=== PATIENT | male | born 1970 | race Caucasian/White ===

== ENCOUNTER 2023-08-28 15:25 | Inpatient (IN) ==
[2023-08-28] MEDS: SODIUM CHLORIDE 0.9% 1,000 ML IV SCH (15:42)
--- NOTE | 2023-08-28 15:44 | Emergency Department Note ---
Impression & Plan Non-ST elevation SD (NSTEMI), Leukocytosis, Acute hyponatremia, Hyperglycemia, CHF (congestive heart failure), Acute hypoxic respiratory failure ED Provider Note NAME: EMIL JAMES AGE: 53 SEX: M : 1970 ARRIVES VIA: Ambulance INFORMANT: Patient ED PROVIDER(S): Adam Crawford DO CHIEF COMPLAINT: chest pain and shortness of breath HPI: Patient is a 54-year-old male with a past medical history of hypertension, epilepsy, dyslipidemia, smoking, diabetes and generalized anxiety who presents to the ER for 6 days worth of nausea and vomiting. He was unable to keep anything down until about three days ago. Following this he started having chest tightness in his chest associate with shortness of breath with any kind of movement for the past 3 days. He notes that he went to see his PCP and he was consequently referred him here. He was brought in by EMS. He denies any headache or change in vision. No belly pain, or diarrhea. No dysuria, urgency, or frequency. ADDITIONAL HISTORY OBTAINED: Per HPI Chronic Medical/Social Conditions Affecting Care: Per HPI PAST MEDICAL HISTORY:See Below PAST SURGICAL HISTORY:See Below FAMILY HISTORY:See Below SOCIAL HISTORY:See Below HOME MEDICATIONS:See Below ALLERGIES:See Below VITALS:See Below PHYSICAL EXAMINATION: GENERAL: Sitting up in bed, alert, slightly ill appearing EYE EXAM: normal conjunctiva. PERRL and EOM's grossly intact. OROPHARYNX: no exudate, no erythema, lips, buccal mucosa, and tongue normal and mucous membranes are moist NECK: supple, no nuchal rigidity, no adenopathy, non-tender LUNGS: Clear to auscultation. Normal chest wall mechanics HEART: tachy, S1 normal and S2 normal ABDOMEN: abdomen soft, non-tender, normo-active bowel sounds, no masses, no rebound or guarding. UPPER EXTREMITIES: upper extremities are grossly normal. LOWER EXTREMITIES: No pitting edema. NEURO EXAM: Normal sensorium, cranial nerves II-XII grossly intact, normal speech, no gross weakness of arms, no gross weakness of legs. MEDICAL DECISION MAKING: Patient is a 53-year-old male who presents ER for the above-stated complaint. IV was established blood work was obtained. Labs showed a leukocytosis of 11,000. No significant anemia. BMP was fairly unremarkable. Glucose was elevated at 424. Troponin was elevated at 470. Lactic acid was elevated at 3. Procalcitonin was negative. Upon initial evaluation and presentation Patient was initially given 1 L of fluids upon arrival do to his History of nausea and vomiting for the past 6 days and combination with the EKG that appeared to be sinus tach. Chest x-ray was obtained/delayed and was not taken until Over an hour after arrival which showed pulmonary edema per my read. CT angio of the chest was obtained prior to the results of the chest x-ray which showed pulmonary edema and no PEs as is concern for PE in the setting of his initial presentation in combination with a sinus tachycardia. CT abdomen pelvis is unremarkable with the exception of a concern for recent SD which was discussed with both cardiology and interventional cardiology. EKG did show abnormal ST wave changes. Fluids were stopped and he had received 800 and the fluids. He was given IV Lasix and Lopressor x 3 doses at this time. Heart rate trended down to low 100s. I discussed with Dr. Corrales who recommended that I speak with the cement mason apprentice. Spoke with Dr. Gaviria and he recommended grabbing an echo. We called the technology intern in. They are performing an echo currently. I discussed case with the hospitalist for admission. Patient is feeling significantly better on BiPAP which she was placed on initially and after the Lasix and multiple dose of Lopressor's. Consults/Care Managements Discussions: Per [facility] Triage Nursing notes reviewed. Limited review of prior medical records performed Vital Signs: reviewed and remarkable for HTN and tachy Differential diagnosis: Cardiac ischemia, aortic dissection, pulmonary embolism, pneumothorax, pneumonia, pericarditis, myocarditis, esophageal rupture, GERD, cholecystitis, pancreatitis, musculoskeletal, as well as other pathologies. ER treatment provided: See below Diagnostics interpreted by me include EKG and cardiac monitoring as listed below: -Cardiac Monitoring: An order was placed for continuous cardiac monitoring. The monitor shows a rate of 130 with Aflutter rhythm. -ECG: atrial flutter rate of 136 Left axis Right bundle branch block ST elevation in V1-V2. QTC 571 -Laboratory studies:Interpreted by me as stated above in MDM and shown below. Imaging studies: Xrays: As interpreted by me:Portable AP upright 1 view of the chest shows bilateral pulmonary edema and pleural effusions CTs show: CT of the chest and abdomen pelvis as described above Procedures:none Critical Care: I have personally spent 80 minutes of critical care time in the direct management of this patient. This includes bedside care, interpretation of diagnostic studies, and testing, discussion with consultants, patient, and family members, and other required patient management activities. This 80 minutes is in excess of all separately billable procedures. Past Med/Surg History Problem List (Updated 08/28/23 @ 19:17 by Adam Crawford DO) Acute hypoxic respiratory failure (Acute) CHF (congestive heart failure) (Acute) Hyperglycemia (Acute) Acute hyponatremia (Acute) Leukocytosis (Acute) Non-ST elevation SD (NSTEMI) (Acute) Hypomagnesemia Tobacco abuse Diabetes mellitus, type II Bilateral pleural effusion Pulmonary edema NSTEMI (non-ST elevated myocardial infarction) History of diabetes mellitus, type II Polyneuropathy Anxiety state Essential hypertension Hyperlipidemia Generalized convulsive epilepsy Idiopathic polyneuropathy Medical History Closed fracture of cervical vertebra without spinal cord injury Dissection of vertebral artery Carotid artery occlusion Family History Mother Diabetes Hypertension Grandmother (Maternal) No problems noted. Grandfather (Maternal) No problems noted. Social History Smoking Status: Current every day smoker Hx Alcohol Use: No Hx Substance Use: No Preferred Language: Pakistani marital status: Single Current Living Situation: Alone Feels Safe at Home: Yes caffeine: Yes Allergies Allergies Allergy/AdvReac Type Severity Reaction Status Date / Time No Known Allergies Allergy Verified 06/28/22 08:48 Home Meds Home Medications Medication Instructions Recorded Confirmed amlodipine 10 mg tablet 10 mg PO DAILY 06/28/22 06/28/22 aspirin 25 mg-dipyridamole 200 mg 1 cap PO DAILY 06/28/22 06/28/22 capsule,ext.release 12 hr multiphase atorvastatin 40 mg tablet 40 mg PO DAILY 06/28/22 06/28/22 buspirone 10 mg tablet 10 mg PO TID PRN 06/28/22 06/28/22 dulaglutide 0.75 mg/0.5 mL 0.75 mg subcut Q7D 06/28/22 06/28/22 subcutaneous pen injector (Trulicity) hydrochlorothiazide 25 mg tablet 25 mg PO BID 06/28/22 06/28/22 metoprolol tartrate 100 mg tablet 100 mg PO DAILY 06/28/22 06/28/22 paroxetine HCl 20 mg tablet (Paxil) 20 mg PO DAILY 06/28/22 06/28/22 paroxetine HCl 40 mg tablet (Paxil) 40 mg PO DAILY 06/28/22 06/28/22 trazodone 50 mg tablet 50 mg PO HS 06/28/22 06/28/22 valsartan 320 mg tablet 320 mg PO DAILY 06/28/22 06/28/22 Previous Rx's Medication Instructions Recorded oxcarbazepine 150 mg tablet 150 mg PO BID #60 tabs 06/28/22 Results & Data (ED) Vital Signs Vital Signs - 24 hr 08/28/23 15:29 08/28/23 15:31 08/28/23 15:33 Temperature 36.8 C Temperature Source Temporal Artery Scan Pulse Rate 132 H 138 H Pulse Rate [Apical] Pulse Rate from SpO2 Sensor 137 H Pulse Rhythm Pulse Rhythm [Apical] Pulse Strength [Apical] Respiratory Rate 20 26 H Respiratory Effort / Characteristics Non-Labored Spontaneous Respiratory Depth Normal Respiratory Pattern Regular Blood Pressure 153/118 H 153/118 H Blood Pressure [Left Arm] Blood Pressure Mean 132 129 Blood Pressure Mean [Left Arm] Blood Pressure Position Sitting Blood Pressure Position [Left Arm] Pulse Oximetry 94 95 Oxygen Delivery Method Room Air Oxygen Flow Rate Fraction of Inspired Oxygen SaO2/FiO2 Ratio Sepsis Recent Fever Within 48 Hours No Sepsis New/Unexplained Change in Mental Status No Sepsis Action Taken by Nursing No Action Required 08/28/23 15:41 08/28/23 15:43 08/28/23 15:45 Temperature Temperature Source Pulse Rate 131 H 136 H Pulse Rate [Apical] Pulse Rate from SpO2 Sensor Pulse Rhythm Regular Pulse Rhythm [Apical] Pulse Strength [Apical] Respiratory Rate 20 Respiratory Effort / Characteristics Respiratory Depth Respiratory Pattern Blood Pressure Blood Pressure [Left Arm] Blood Pressure Mean Blood Pressure Mean [Left Arm] Blood Pressure Position Blood Pressure Position [Left Arm] Pulse Oximetry 92 92 Oxygen Delivery Method Room Air Room Air Oxygen Flow Rate Fraction of Inspired Oxygen SaO2/FiO2 Ratio Sepsis Recent Fever Within 48 Hours Sepsis New/Unexplained Change in Mental Status Sepsis Action Taken by Nursing 08/28/23 15:50 08/28/23 15:54 08/28/23 16:03 Temperature Temperature Source Pulse Rate 123 H 122 H Pulse Rate [Apical] 135 H Pulse Rate from SpO2 Sensor 123 H Pulse Rhythm Pulse Rhythm [Apical] Regular Pulse Strength [Apical] Normal Respiratory Rate 22 29 H 27 H Respiratory Effort / Characteristics Spontaneous Respiratory Depth Respiratory Pattern Regular Blood Pressure Blood Pressure [Left Arm] 153/118 H Blood Pressure Mean Blood Pressure Mean [Left Arm] 129 Blood Pressure Position Blood Pressure Position [Left Arm] Sitting Pulse Oximetry 95 91 Oxygen Delivery Method Room Air Oxygen Flow Rate Fraction of Inspired Oxygen SaO2/FiO2 Ratio Sepsis Recent Fever Within 48 Hours Sepsis New/Unexplained Change in Mental Status Sepsis Action Taken by Nursing 08/28/23 16:25 08/28/23 16:28 08/28/23 16:36 Temperature Temperature Source Pulse Rate 149 H Pulse Rate [Apical] Pulse Rate from SpO2 Sensor 148 H Pulse Rhythm Pulse Rhythm [Apical] Pulse Strength [Apical] Respiratory Rate 28 H 26 H 25 H Respiratory Effort / Characteristics Spontaneous Labored Spontaneous Labored Respiratory Depth Respiratory Pattern Blood Pressure Blood Pressure [Left Arm] Blood Pressure Mean Blood Pressure Mean [Left Arm] Blood Pressure Position Blood Pressure Position [Left Arm] Pulse Oximetry 84 L 92 96 Oxygen Delivery Method Room Air Nasal Cannula Oxygen Flow Rate 3 Fraction of Inspired Oxygen SaO2/FiO2 Ratio Sepsis Recent Fever Within 48 Hours Sepsis New/Unexplained Change in Mental Status Sepsis Action Taken by Nursing 08/28/23 16:37 08/28/23 16:37 08/28/23 16:37 Temperature Temperature Source Pulse Rate Pulse Rate [Apical] Pulse Rate from SpO2 Sensor Pulse Rhythm Pulse Rhythm [Apical] Pulse Strength [Apical] Respiratory Rate Respiratory Effort / Characteristics Respiratory Depth Respiratory Pattern Blood Pressure 172/126 H 172/126 H 172/126 H Blood Pressure [Left Arm] Blood Pressure Mean 133 133 133 Blood Pressure Mean [Left Arm] Blood Pressure Position Blood Pressure Position [Left Arm] Pulse Oximetry Oxygen Delivery Method Oxygen Flow Rate Fraction of Inspired Oxygen SaO2/FiO2 Ratio Sepsis Recent Fever Within 48 Hours Sepsis New/Unexplained Change in Mental Status Sepsis Action Taken by Nursing 08/28/23 16:47 08/28/23 16:57 08/28/23 17:00 Temperature Temperature Source Pulse Rate 130 H 127 H 124 H Pulse Rate [Apical] Pulse Rate from SpO2 Sensor 127 H 124 H Pulse Rhythm Pulse Rhythm [Apical] Pulse Strength [Apical] Respiratory Rate 30 H 30 H 31 H Respiratory Effort / Characteristics Spontaneous Labored Short of Breath Respiratory Depth Retractive Respiratory Pattern Rapid/Shallow Blood Pressure Blood Pressure [Left Arm] Blood Pressure Mean Blood Pressure Mean [Left Arm] Blood Pressure Position Blood Pressure Position [Left Arm] Pulse Oximetry 98 98 99 Oxygen Delivery Method Oxygen Flow Rate Fraction of Inspired Oxygen 45 SaO2/FiO2 Ratio Sepsis Recent Fever Within 48 Hours Sepsis New/Unexplained Change in Mental Status Sepsis Action Taken by Nursing 08/28/23 17:10 08/28/23 17:15 08/28/23 17:19 Temperature Temperature Source Pulse Rate 125 H Pulse Rate [Apical] 120 H Pulse Rate from SpO2 Sensor Pulse Rhythm Pulse Rhythm [Apical] Regular Pulse Strength [Apical] Normal Respiratory Rate 22 Respiratory Effort / Characteristics Spontaneous Labored Respiratory Depth Respiratory Pattern Regular Blood Pressure 146/115 H 146/115 H Blood Pressure [Left Arm] 149/113 H Blood Pressure Mean 139 Blood Pressure Mean [Left Arm] 125 Blood Pressure Position Blood Pressure Position [Left Arm] Sitting Pulse Oximetry 99 Oxygen Delivery Method BiPAP Oxygen Flow Rate Fraction of Inspired Oxygen 45 SaO2/FiO2 Ratio 220 Sepsis Recent Fever Within 48 Hours Sepsis New/Unexplained Change in Mental Status Sepsis Action Taken by Nursing 08/28/23 17:30 08/28/23 17:35 08/28/23 18:01 Temperature Temperature Source Pulse Rate 125 H 115 H Pulse Rate [Apical] 115 H Pulse Rate from SpO2 Sensor Pulse Rhythm Pulse Rhythm [Apical] Regular Pulse Strength [Apical] Normal Respiratory Rate 24 Respiratory Effort / Characteristics Labored Respiratory Depth Respiratory Pattern Blood Pressure 133/113 H Blood Pressure [Left Arm] 122/101 H Blood Pressure Mean Blood Pressure Mean [Left Arm] 108 Blood Pressure Position Blood Pressure Position [Left Arm] Sitting Pulse Oximetry 98 Oxygen Delivery Method BiPAP Oxygen Flow Rate Fraction of Inspired Oxygen 45 SaO2/FiO2 Ratio 217 Sepsis Recent Fever Within 48 Hours Sepsis New/Unexplained Change in Mental Status Sepsis Action Taken by Nursing 08/28/23 18:30 08/28/23 18:55 08/28/23 18:59 Temperature Temperature Source Pulse Rate 134 H Pulse Rate [Apical] 122 H 116 H Pulse Rate from SpO2 Sensor Pulse Rhythm Pulse Rhythm [Apical] Regular Regular Pulse Strength [Apical] Normal Normal Respiratory Rate 22 24 Respiratory Effort / Characteristics Non-Labored Spontaneous Spontaneous Labored Respiratory Depth Normal Respiratory Pattern Regular Blood Pressure 151/110 H Blood Pressure [Left Arm] 131/106 H 125/93 Blood Pressure Mean Blood Pressure Mean [Left Arm] 114 103 Blood Pressure Position Blood Pressure Position [Left Arm] Sitting Pulse Oximetry 95 96 Oxygen Delivery Method BiPAP BiPAP Oxygen Flow Rate Fraction of Inspired Oxygen 45 45 SaO2/FiO2 Ratio 211 213 Sepsis Recent Fever Within 48 Hours Sepsis New/Unexplained Change in Mental Status Sepsis Action Taken by Nursing 08/28/23 19:00 Temperature Temperature Source Pulse Rate Pulse Rate [Apical] 113 H Pulse Rate from SpO2 Sensor Pulse Rhythm Pulse Rhythm [Apical] Regular Pulse Strength [Apical] Normal Respiratory Rate 24 Respiratory Effort / Characteristics Respiratory Depth Respiratory Pattern Blood Pressure Blood Pressure [Left Arm] Blood Pressure Mean Blood Pressure Mean [Left Arm] Blood Pressure Position Blood Pressure Position [Left Arm] Pulse Oximetry 96 Oxygen Delivery Method BiPAP Oxygen Flow Rate Fraction of Inspired Oxygen 45 SaO2/FiO2 Ratio 213 Sepsis Recent Fever Within 48 Hours Sepsis New/Unexplained Change in Mental Status Sepsis Action Taken by Nursing Laboratory Data 08/28/23 15:36 08/28/23 15:36 Lab Results 08/28/23 08/28/23 08/28/23 Range/Units 15:36 15:37 17:26 WBC 11.88 H (4.8-10.8) K/ul RBC 5.43 (4.70-6.10) M/uL Hgb 15.7 (14.0-18.0) g/dl POC Hgb 16.3 (14.0-18.0) g/dl Hct 45.5 (42.0-52.0) % POC Hct 48 (42-52) % MCV 83.8 (80.0-100.0) fL MCH 28.9 (25.0-34.0) pg MCHC 34.5 (32.0-36.0) g/dL RDW Std Deviation 40.4 (36.4-46.3) fL RDW Coeff of Silvestre 13.3 (11.5-14.5) % Plt Count 405 H (130-400) K/uL MPV 9.9 (9.4-12.4) fL Immature Gran % (Auto) 0.6 % Neut % (Auto) 81.7 % Lymph % (Auto) 11.4 % [place] % (Auto) 6.0 % Eos % (Auto) 0.0 % Baso % (Auto) 0.3 % Neut # (Auto) 9.71 H (1.40-6.50) K/uL Lymph # (Auto) 1.35 (1.20-3.40) K/uL [place] # (Auto) 0.71 H (0.11-0.59) K/uL Eos # (Auto) 0.00 (0.00-0.50) K/uL Baso # (Auto) 0.04 (0.00-0.20) K/uL Immature Gran # (Auto) 0.07 (0.01-0.20) K/uL POC Sodium 131 L (135-144) mmol/L Sodium 131 L (136-145) mmol/L POC Potassium 3.8 (3.3-5.0) mmol/L Potassium 3.7 (3.5-5.1) mmol/L POC Chloride 92 L (101-112) mmol/L Chloride 94 L (98-107) mmol/L Carbon Dioxide 25 (21-32) mmol/L POC Total CO2 22 L (24-31) mmol/L Anion Gap 12 H (3-11) POC Anion Gap 22.0 (16-25) mmol/L POC BUN 11 (7-18) mg/dl BUN 12 (6-23) mg/dl Creatinine 0.82 (0.6-1.4) mg/dl POC Creatinine 0.7 (0.6-1.3) mg/dl Est Cr Clr Drug Dosing 132.7 ml/min Est GFR ( Amer) 117.0 ml/min Est GFR (Non-Af Amer) 101.0 ml/min BUN/Creatinine Ratio 14.6 (10-20) Glucose 424 H* (70-99(Fasting)) mg/dl POC Glucose 291 H (70-99) mg/dl POC Glucose (other) 405 H* (70-99) mg/dl Lactate 3.0 H* (0.4-2.0) mmol/L Calcium 9.1 (8.6-10.3) mg/dl POC Ioniz Calcium Shaun 1.08 L (1.12-1.32) mmol/l Magnesium 1.5 L (1.7-2.4) mg/dl Total Bilirubin 0.9 (0.2-1.0) mg/dl Direct Bilirubin 0.2 (0-0.2) mg/dl AST 40 H (13-39) U/L ALT 53 H (7-52) U/L Alkaline Phosphatase 103 (34-104) U/L Troponin I High Sens 413.9 H* (0-20) pg/ml Total Protein 6.9 (6.0-8.3) gm/dl Albumin 3.5 (3.4-5.0) gm/dl Procalcitonin 0.08 (0-0.5) ng/ml 08/28/23 Range/Units 17:58 WBC (4.8-10.8) K/ul RBC (4.70-6.10) M/uL Hgb (14.0-18.0) g/dl POC Hgb (14.0-18.0) g/dl Hct (42.0-52.0) % POC Hct (42-52) % MCV (80.0-100.0) fL MCH (25.0-34.0) pg MCHC (32.0-36.0) g/dL RDW Std Deviation (36.4-46.3) fL RDW Coeff of Silvestre (11.5-14.5) % Plt Count (130-400) K/uL MPV (9.4-12.4) fL Immature Gran % (Auto) % Neut % (Auto) % Lymph % (Auto) % [place] % (Auto) % Eos % (Auto) % Baso % (Auto) % Neut # (Auto) (1.40-6.50) K/uL Lymph # (Auto) (1.20-3.40) K/uL [place] # (Auto) (0.11-0.59) K/uL Eos # (Auto) (0.00-0.50) K/uL Baso # (Auto) (0.00-0.20) K/uL Immature Gran # (Auto) (0.01-0.20) K/uL POC Sodium (135-144) mmol/L Sodium (136-145) mmol/L POC Potassium (3.3-5.0) mmol/L Potassium (3.5-5.1) mmol/L POC Chloride (101-112) mmol/L Chloride (98-107) mmol/L Carbon Dioxide (21-32) mmol/L POC Total CO2 (24-31) mmol/L Anion Gap (3-11) POC Anion Gap (16-25) mmol/L POC BUN (7-18) mg/dl BUN (6-23) mg/dl Creatinine (0.6-1.4) mg/dl POC Creatinine (0.6-1.3) mg/dl Est Cr Clr Drug Dosing ml/min Est GFR ( Amer) ml/min Est GFR (Non-Af Amer) ml/min BUN/Creatinine Ratio (10-20) Glucose (70-99(Fasting)) mg/dl POC Glucose (70-99) mg/dl POC Glucose (other) (70-99) mg/dl Lactate 3.5 H* (0.4-2.0) mmol/L Calcium (8.6-10.3) mg/dl POC Ioniz Calcium Shaun (1.12-1.32) mmol/l Magnesium (1.7-2.4) mg/dl Total Bilirubin (0.2-1.0) mg/dl Direct Bilirubin (0-0.2) mg/dl AST (13-39) U/L ALT (7-52) U/L Alkaline Phosphatase (34-104) U/L Troponin I High Sens 472.1 H* (0-20) pg/ml Total Protein (6.0-8.3) gm/dl Albumin (3.4-5.0) gm/dl Procalcitonin (0-0.5) ng/ml Administered Medications Heparin Sodium/Dextrose (Heparin Sodium/Dextrose) 25,000 units in 500 mls @ 20 mls/hr IV .Q24H [facility]; Protocol Stop: 09/27/23 17:44 Last Admin: 08/28/23 17:58 Dose: 1,000 units/hr, 20 mls/hr Documented By: MARCELINO Co-signed By: TRES Metoprolol Tartrate (Metoprolol Tartrate 1 Mg/Ml Vial) 5 mg IV Q5M PRN PRN Reason: Tachycardia Last Admin: 08/28/23 17:15 Dose: 5 mg Documented By: Admin: 08/28/23 16:53 Dose: 5 mg Documented By: MARCELINO Discontinued Medications Furosemide (Furosemide 40 Mg/4 Ml Vial) 40 mg IV NOW STA Stop: 08/28/23 16:38 Last Admin: 08/28/23 16:53 Dose: 40 mg Documented By: MARCELINO Heparin Sodium (Porcine) (Heparin Sod (Porcine) 1000 Unit/Ml) 1 units IV NOW ONE Stop: 08/28/23 17:33 Last Admin: 08/28/23 17:58 Dose: 4,000 units Documented By: MARCELINO Co-signed By: TRES Heparin Sodium/Dextrose (Heparin Iv Adult Wt-Based Low-Dose W/ Initial Bolus Protocol) 1 each IV NOW STA; Protocol Stop: 08/28/23 17:18 Last Admin: 08/28/23 18:02 Dose: Not Given Documented By: MARCELINO Sodium Chloride (Nss) 1,000 mls @ 999 mls/hr IV .Q1H1M YEIMY Stop: 08/28/23 17:45 Last Infusion: 08/28/23 17:05 Dose: Infused Documented By: Admin: 08/28/23 15:42 Dose: 999 mls/hr Documented By: MARCELINO Insulin Human Regular (Novolin-R Insulin Per Unit Charge) 6 units IV NOW STA Stop: 08/28/23 16:42 Last Admin: 08/28/23 16:54 Dose: 6 units Documented By: MARCELINO Co-signed By: WILLY Ioversol (Optiray 320 125ml) 119 ml IV ONCE ONE Stop: 08/28/23 16:34 Last Admin: 08/28/23 16:33 Dose: 119 ml Documented By: FAHAD Lorazepam (Lorazepam 1 Mg/1 Ml Syr Ed Inj Use) 0.25 mg IV ONE STA Stop: 08/28/23 17:10 Last Admin: 08/28/23 17:15 Dose: 0.25 mg Documented By: MARCELINO Metoprolol Tartrate (Metoprolol Tartrate 1 Mg/Ml Vial) 5 mg IV NOW STA Stop: 08/28/23 18:54 Last Admin: 08/28/23 18:55 Dose: 5 mg Documented By: MARCELINO Imaging Data Radiologist's Impression: Chest X-Ray 08/28/23 15:35 XR chest 1V portable CLINICAL HISTORY: Sepsis. Shortness of breath. COMPARISON STUDY: No previous studies for comparison. FINDINGS: There is no pneumothorax. There are small bilateral pleural effusions. Interlobular septal thickening is noted. Bibasilar and left perihilar opacities are noted. The heart is moderately enlarged. IMPRESSION: Cardiomegaly with interstitial and alveolar pulmonary edema with small bilateral pleural effusions. ACT 112: Negative or not required by law. Electronically signed by: Haroon Corbett M.D. 08/28/2023 4:42 PM Chest CTA 08/28/23 16:15 CT ANGIOGRAPHY OF THE CHEST, PULMONARY EMBOLUS PROTOCOL CLINICAL HISTORY: Shortness of breath. Chest pain. COMPARISON STUDY: Chest radiograph performed earlier today. TECHNIQUE: Following IV administration of 119 mL of Optiray, helical axial images of the chest were obtained utilizing the pulmonary embolus protocol. Maximal intensity projections and sagittal and coronal reformats were viewed on an independent 3D workstation. IV contrast was administered without complication. Automated exposure control was utilized for the study. A dose lowering technique was utilized adhering to the principles of ALARA. FINDINGS: No pulmonary emboli are identified. The heart is moderately enlarged. There is no pericardial effusion. There are multiple mildly enlarged mediastinal lymph nodes. Index right paratracheal lymph node on image 148 of 243 measures 1.9 x 1.4 cm. There are [id number] bilateral pleural effusions. No pneumothorax is present. Extensive interlobular septal thickening is noted. There are also moderate bilateral perihilar airspace opacities. Central airways are patent. There is extensive coronary artery calcification. The abdomen and pelvis CT will be reported separately. IMPRESSION: 1. No pulmonary emboli identified. 2. Cardiomegaly and extensive coronary artery calcification. Interstitial and alveolar pulmonary edema with small to moderate bilateral pleural effusions. 3. Mildly enlarged mediastinal lymph nodes. These are nonspecific although likely related to pulmonary edema. ACT 112: Negative or not required by law. Electronically signed by: Haroon Corbett M.D. 08/28/2023 4:48 PM Abdomen/Pelvis CT 08/28/23 16:[address] WITH IV CONTRAST CT DOSE: 2425.99 mGy.cm HISTORY: Acute chest abdominal pain abd pain TECHNIQUE: Multiaxial CT images of the abdomen and pelvis were performed following the IV administration of 119 cc of Optiray, A dose lowering technique was utilized adhering to the principles of ALARA. COMPARISON STUDY: CTA chest of same day FINDINGS: Moderate layering pleural effusions. Extensive interstitial and alveolar opacities with bibasilar consolidation. Cardiomegaly. Hypoattenuation of the left ventricular myocardium with decreased enhancement. No free air. Unremarkable spleen, pancreas and gallbladder. Hepatic steatosis. Probable cyst of the left hepatic lobe, 2.3 cm. The liver is mildly enlarged. No hydronephrosis. There are a few nonobstructing calculi noted within the bilateral kidneys measuring up to 4 mm. Bilateral hypodense foci of the kidneys suggestive of renal cysts measuring up to 1.5 cm on the right. Prostatomegaly. Unremarkable urinary bladder. Atherosclerosis of the aorta without aneurysm. No lymphadenopathy. No bowel obstruction or bowel wall thickening. Mild to moderate colonic fecal retention. Normal appendix. No acute fracture. Chronic appearing L3 wedge deformity. IMPRESSION: 1. No bowel obstruction or bowel wall thickening. 2. Nonobstructing bilateral nephrolithiasis. 3. Moderate pleural effusions with pulmonary edema and bibasilar consolidation. 4. Cardiomegaly with coronary arterial calcifications. Decreased enhancement of the left ventricular myocardium which involves the apex, lateral and septal walsh compatible with age-indeterminate myocardial infarct. Correlate with serum troponin's. ACT 112: Negative or not required by law. The above report was generated using voice recognition software. It may contain grammatical, syntax or spelling errors. Electronically signed by: Elan Stewart M.D. 08/28/2023 4:50 PM Discharge Plan Visit Data Chief Complaint: Chest Pain Stated Complaint: CHEST PAIN/SOB ED Provider: Adam Crawford Discharge Problem: Non-ST elevation SD (NSTEMI), Leukocytosis, Acute hyponatremia, Hyperglycemia, CHF (congestive heart failure), Acute hypoxic respiratory failure Forms Stand Alone Forms: My [facility] [employer] Prescriptions Prescriptions: No Action aspirin-dipyridamole 25-200 mg capsule, ER multiphase 12 hr 1 cap PO DAILY atorvastatin 40 mg tablet 40 mg PO DAILY metoprolol tartrate 100 mg tablet 100 mg PO DAILY paroxetine HCl [Paxil] 20 mg tablet 20 mg PO DAILY paroxetine HCl [Paxil] 40 mg tablet 40 mg PO DAILY valsartan 320 mg tablet 320 mg PO DAILY amlodipine 10 mg tablet 10 mg PO DAILY buspirone 10 mg tablet 10 mg PO TID PRN hydrochlorothiazide 25 mg tablet 25 mg PO BID trazodone 50 mg tablet 50 mg PO HS Trulicity 0.75 mg/0.5 mL pen injector 0.75 mg subcut Q7D oxcarbazepine 150 mg tablet 150 mg PO BID Qty: 60 5RF Referrals Referrals: Jossy Victoria DO [Outside Practitioners] - Discharge Problem: Leukocytosis Qualifiers: Leukocytosis type: unspecified Qualified Code(s): D72.829 - Elevated white blood cell count, unspecified CHF (congestive heart failure) Qualifiers: Heart failure type: unspecified Heart failure chronicity: unspecified Qualified Code(s): I50.9 - Heart failure, unspecified
[2023-08-28 15:50] LABS: iSTAT Creatinine 0.7 mg/dl (0.6-1.3); iSTAT Hemoglobin 16.3 g/dl (14.0-18.0); iSTAT Ionized Calcium 1.08 mmol/l (1.12-1.32); iSTAT Potassium 3.8 mmol/L (3.3-5.0)
[2023-08-28 15:57] LABS: Basophils # (auto) 0.04 K/uL (0.00-0.20); Basophils % (auto) 0.3 %; Hematocrit (blood only) 45.5 % (42.0-52.0); Hemoglobin 15.7 g/dl (14.0-18.0); Immature Granulocytes # (auto) 0.07 K/uL (0.01-0.20); Immature Granulocytes % (auto) 0.6 %; Lymphocytes # (auto) 1.35 K/uL (1.20-3.40); Lymphocytes % (auto) 11.4 %; Mean Corpuscular Hemoglobin 28.9 pg (25.0-34.0); Mean Corpuscular Hgb Conc 34.5 g/dL (32.0-36.0); Mean Corpuscular Volume 83.8 fL (80.0-100.0); Mean Platelet Volume 9.9 fL (9.4-12.4); Monocytes # (auto) 0.71 K/uL (0.11-0.59); Neutrophils # (auto) 9.71 K/uL (1.40-6.50); Neutrophils % (auto) 81.7 %; Platelet Count 405 K/uL (130-400); RDW Coefficient of Variation 13.3 % (11.5-14.5); RDW Standard Deviation 40.4 fL (36.4-46.3); Red Blood Count 5.43 M/uL (4.70-6.10); White Blood Count 11.88 K/ul (4.8-10.8)
[2023-08-28] MEDS: OPTIRAY 320 125ml IV ONE (16:33)
[2023-08-28 16:35] LABS: Albumin Level 3.5 gm/dl (3.4-5.0); BUN Creatinine Ratio 14.6 (10-20); Bilirubin Direct 0.2 mg/dl (0-0.2); Bilirubin,Total 0.9 mg/dl (0.2-1.0); Calcium 9.1 mg/dl (8.6-10.3); Creatinine Clr Calc Pharmacy 132.7 ml/min; Magnesium 1.5 mg/dl (1.7-2.4); Potassium 3.7 mmol/L (3.5-5.1); Total Protein 6.9 gm/dl (6.0-8.3); Troponin I High Sensitivity 413.9 pg/ml (0-20)
--- NOTE | 2023-08-28 16:43 | XRay Report ---
XR chest 1V portable CLINICAL HISTORY: Sepsis. Shortness of breath. COMPARISON STUDY: No previous studies for comparison. FINDINGS: There is no pneumothorax. There are small bilateral pleural effusions. Interlobular septal thickening is noted. Bibasilar and left perihilar opacities are noted. The heart is moderately enlarg ed. IMPRESSION: Cardiomegaly with interstitial and alveolar pulmonary edema with small bilateral pleural effusions. ACT 112: Negative or not required by law. Electronically signed by: Haroon Corbett M.D. 08/28/2023 4:42 PM
--- NOTE | 2023-08-28 16:50 | CT Scan Report ---
CT ANGIOGRAPHY OF THE CHEST, PULMONARY EMBOLUS PROTOCOL CLINICAL HISTORY: Shortness of breath. Chest pain. COMPARISON STUDY: Chest radiograph performed earlier today. TECHNIQUE: Following IV administration of 119 mL of Optiray, helical axial images of the chest were o btained utilizing the pulmonary embolus protocol. Maximal intensity projections and sagittal and cor onal reformats were viewed on an independent 3D workstation. IV contrast was administered without co mplication. Automated exposure control was utilized for the study. A dose lowering technique was ut ilized adhering to the principles of ALARA. FINDINGS: No pulmonary emboli are identified. The heart is moderately enlarged. There is no pericard ial effusion. There are multiple mildly enlarged mediastinal lymph nodes. Index right paratracheal ly mph node on image 148 of 243 measures 1.9 x 1.4 cm. There are [id number] bilateral pleural eff usions. No pneumothorax is present. Extensive interlobular septal thickening is noted. There are also moderate bilateral perihilar airspace opacities. Central airways are patent. There is extensive sukumar nary artery calcification. The abdomen and pelvis CT will be reported separately. IMPRESSION: 1. No pulmonary emboli identified. 2. Cardiomegaly and extensive coronary artery calcification. Interstitial and alveolar pulmonary licha a with small to moderate bilateral pleural effusions. 3. Mildly enlarged mediastinal lymph nodes. These are nonspecific although likely related to pulmonar y edema. ACT 112: Negative or not required by law. Electronically signed by: Haroon Corbett M.D. 08/28/2023 4:48 PM
--- NOTE | 2023-08-28 16:51 | CT Scan Report ---
ABDOMEN AND PELVIS CT WITH IV CONTRAST CT DOSE: 2425.99 mGy.cm HISTORY: Acute chest abdominal pain abd pain TECHNIQUE: Multiaxial CT images of the abdomen and pelvis were performed following the IV administrat ion of 119 cc of Optiray, A dose lowering technique was utilized adhering to the principles of ALARA . COMPARISON STUDY: CTA chest of same day FINDINGS: Moderate layering pleural effusions. Extensive interstitial and alveolar opacities with bib asilar consolidation. Cardiomegaly. Hypoattenuation of the left ventricular myocardium with decreased enhancement. No free air. Unremarkable spleen, pancreas and gallbladder. Hepatic steatosis. Probable cyst of the left hepatic l obe, 2.3 cm. The liver is mildly enlarged. No hydronephrosis. There are a few nonobstructing calculi noted within the bilateral kidneys measurin g up to 4 mm. Bilateral hypodense foci of the kidneys suggestive of renal cysts measuring up to 1.5 c m on the right. Prostatomegaly. Unremarkable urinary bladder. Atherosclerosis of the aorta without an eurysm. No lymphadenopathy. No bowel obstruction or bowel wall thickening. Mild to moderate colonic fecal retention. Normal appen marika. No acute fracture. Chronic appearing L3 wedge deformity. IMPRESSION: 1. No bowel obstruction or bowel wall thickening. 2. Nonobstructing bilateral nephrolithiasis. 3. Moderate pleural effusions with pulmonary edema and bibasilar consolidation. 4. Cardiomegaly with coronary arterial calcifications. Decreased enhancement of the left ventricular myocardium which involves the apex, lateral and septal walsh compatible with age-indeterminate myocar dial infarct. Correlate with serum troponin's. ACT 112: Negative or not required by law. The above report was generated using voice recognition software. It may contain grammatical, syntax o r spelling errors. Electronically signed by: Elan Stewart M.D. 08/28/2023 4:50 PM
[2023-08-28] MEDS: METOPROLOL TARTRATE 1 MG/ML VIAL IV PRN (16:53)
[2023-08-28] MEDS: FUROSEMIDE 40 MG/4 ML VIAL IV STA (16:53)
[2023-08-28] MEDS: NovoLIN-R INSULIN PER UNIT CHARGE IV STA (16:54)
--- NOTE | 2023-08-28 17:14 | Electrocardiogram Report ---
Test Reason : Blood Pressure : / mmHG Vent. Rate : 136 BPM Atrial Rate : 136 BPM P-R Int : 120 ms QRS Dur : 132 ms QT Int : 380 ms P-R-T Axes : 010 -67 089 degrees QTc Int : 571 ms Sinus tachycardia Left anterior fascicular block Non-specific intra-ventricular conduction block Minimal voltage criteria for LVH, may be normal variant ( [employer] product ) Possible Anteroseptal infarct , age undetermined Abnormal ECG No previous ECGs available Confirmed by Sea Mckeon ([id number]) on 08/28/2023 5:13:38 PM Referred By: Confirmed By:Sea Mckeon
[2023-08-28] MEDS: LORazepam 1 MG/1 ML SYR ED Inj Use IV STA (17:15)
--- NOTE | 2023-08-28 17:44 | History & Physical Report ---
Date of Service August 28, 2023 Assessment & Plan (1) NSTEMI (non-ST elevated myocardial infarction): (2) Pulmonary edema: (3) Bilateral pleural effusion: (4) Diabetes mellitus, type II: (5) Essential hypertension: (6) Generalized convulsive epilepsy: (7) Hyperlipidemia: (8) Tobacco abuse: (9) Hypomagnesemia: Plan 53 year old male with multiple medical conditions with HTN, DM, HLD, epilepsy, tobacco abuse etc who has been off of all medications for long time who presen frances to the ED from PCP office for CP. Ongoing N/V for about 6 days followed by chest pressure 3 days back, which got worse today and went to the PCP and was subsequently referred to the ED. Trop 400s. CXR- Cardiomegaly with interstitial and alveolar pulmonary edema with small bilateral pleural effusions. CTA chest 1. No pulmonary emboli identified. 2. Cardiomegaly and extensive coronary artery calcification. Interstitial and alveolar pulmonary edema with small to moderate bilateral pleural effusions. 3. Mildly enlarged mediastinal lymph nodes. These are nonspecific although likely related to pulmonary edema. CT A/P 1. No bowel obstruction or bowel wall thickening. 2. Nonobstructing bilateral nephrolithiasis. 3. Moderate pleural effusions with pulmonary edema and bibasilar consolidation. 4. Cardiomegaly with coronary arterial calcifications. Decreased enhancement of the left ventricular myocardium which involves the apex, lateral and septal walsh compatible with age-indeterminate myocardial infarct. Correlate with serum troponin's. NSTEMI with pulmonary edema and bilateral pleural effusion- Symptoms ongoing for at least 3 days now. Multiple risk factors including DM, HTN, HLD, tobacco abuse. Family h/o MT in dad. Given full dose ASA and SL nitro in PCP office, states chest pressure has significantly improved after nitro. In the ED, Trop 405. EKG with sinus tachycardia, LAFB, possible anteroseptal infarct. Cardio and interventional cardiology aware per discussion with ED physician and awaiting echo. Given lasix, lopressor, insulin in ED. On bipap for pulm edema. Will admit to PCU on tele. Continue to trend trop, monitor in tele, continue heparin drip, ASA, statin, BB, iv lasix daily. nitro prn, morphine prn for CP. Echo pending. Lactic acidosis could be from above, however will cover for empiric ceftriaxone with lung consolidations with effusion. DM-2- continue insulin- adjust as indicated. Glycemic pharmacist consulted. HA1c pending. HTN- not on meds. continue lopressor HLD- continue statin. lipid panel in am. Tobacco abuse- hasn't smoked in 2 weeks. Declined nicoderm patch H/o epilepsy- not on meds Hypomagnesemia- repleted, recheck in am DVT ppx- heparin drip Full code Disposition- PCU on tele Time spent- approx 80 mins Unable to reach sister Ary over the phone History of Present Illness Chief Complaint: Chest pain Primary Care Provider: Shannon Freitas MD 53-year-old male with history of uncontrolled diabetes mellitus type 2, hypertension, epilepsy, hyperlipidemia, polyneuropathy, tobacco abuse who was sent from the PCP office for chest pain evaluation. History obtained from patient and chart review but he is not a good historian. States he started feeling sick about 2 weeks ago with nausea/vomiting which improved but started having chest pressure and dyspnea on exertion for about 4 days. It got worse today for which he went to see his PCP today and was referred to the ED. Also had some orthopnea and ankle swelling. states he has been off all his medications for about 6+ months now as he ran out and did not get them refilled. In the PCP office, EKG was done, he was given 4 baby aspirin, 1 SL nitro and sent to the ED. In the ED, patient was found to have sinus tachycardia with EKG changes, trop was elevated, CT chest showed no PE but moderate pleural eff usion with pulm edema and bibasilar consolidation along with cardiomegaly with coronary artery calcification, decreased enhancement of left ventricular myocardium which involves apex, lateral and septal walsh compatible with age- indeterminate myocardial infarct. Case was discussed by ED physician with cardiology and interventional cardiology and heparin drip was started and echo was ordered. He was started on BIPAP and given IV Lasix. Hospitalist service was consulted for admission. Per my discussion with ED physician, cardiology and interventional cardiology are aware and awaiting echocardiogram results prior to determining next steps. He denies any fever, chills, cough, URI symptoms or sick contacts. Allergies Allergy/AdvReac Type Severity Reaction Status Date / Time No Known Allergies Allergy Verified 06/28/22 08:48 Home Medications Medication Instructions Recorded Confirmed Type amlodipine 10 mg tablet 10 mg PO DAILY 06/28/22 06/28/22 History aspirin 25 mg-dipyridamole 200 mg 1 cap PO DAILY 06/28/22 06/28/22 History capsule,ext.release 12 hr multiphase atorvastatin 40 mg tablet 40 mg PO DAILY 06/28/22 06/28/22 History buspirone 10 mg tablet 10 mg PO TID PRN 06/28/22 06/28/22 History dulaglutide 0.75 mg/0.5 mL 0.75 mg subcut Q7D 06/28/22 06/28/22 History subcutaneous pen injector (Trulicity) hydrochlorothiazide 25 mg tablet 25 mg PO BID 06/28/22 06/28/22 History metoprolol tartrate 100 mg tablet 100 mg PO DAILY 06/28/22 06/28/22 History oxcarbazepine 150 mg tablet 150 mg PO BID #60 tabs 06/28/22 06/28/22 Rx paroxetine HCl 20 mg tablet (Paxil) 20 mg PO DAILY 06/28/22 06/28/22 History paroxetine HCl 40 mg tablet (Paxil) 40 mg PO DAILY 06/28/22 06/28/22 History trazodone 50 mg tablet 50 mg PO HS 06/28/22 06/28/22 History valsartan 320 mg tablet 320 mg PO DAILY 06/28/22 06/28/22 History Past Med/Surg History Problem List (Updated 08/28/23 @ 17:39 by Som Dial MD) Hypomagnesemia Tobacco abuse Diabetes mellitus, type II Bilateral pleural effusion Pulmonary edema NSTEMI (non-ST elevated myocardial infarction) History of diabetes mellitus, type II Polyneuropathy Anxiety state Essential hypertension Hyperlipidemia Generalized convulsive epilepsy Idiopathic polyneuropathy Medical History Closed fracture of cervical vertebra without spinal cord injury Dissection of vertebral artery Carotid artery occlusion Family History Mother Diabetes Hypertension Grandmother (Maternal) No problems noted. Grandfather (Maternal) No problems noted. Social History Smoking Status: Current every day smoker Hx Alcohol Use: No Hx Substance Use: No Preferred Language: B[place] marital status: Single Current Living Situation: Alone Feels Safe at Home: Yes caffeine: Yes Review of Systems Review of Systems: All systems reviewed & are unremarkable except as noted in Subjective Physical Exam Physical Exam: General:Sitting comfortably in bed, on BIPAP, not in acute distress HEENT: EOMI, PAULA Chest: Fair breath sounds bilaterally with rales CVS: Tachycardic, normal heart sounds Abdomen: Soft, non tender, not distended, normal bowel sounds Neuro: Awake, alert, oriented, conversing well, non focal Extremities: No edema Results & Data Results & Data Vital Signs (Past 12 Hours) Vital Signs Temp Pulse Pulse Resp BP BP Pulse Ox 08/28/23 17:19 120 H 22 149/113 H 99 08/28/23 17:15 125 H 146/115 H 08/28/23 17:10 146/115 H 08/28/23 17:00 124 H 31 H 99 08/28/23 16:57 127 H 30 H 98 08/28/23 16:47 130 H 30 H 98 08/28/23 16:37 172/126 H 08/28/23 16:37 172/126 H 08/28/23 16:37 172/126 H 08/28/23 16:36 149 H 25 H 96 08/28/23 16:28 26 H 92 08/28/23 16:25 28 H 84 L 08/28/23 16:03 122 H 27 H 08/28/23 15:54 123 H 29 H 91 08/28/23 15:50 135 H 22 153/118 H 95 08/28/23 15:45 92 08/28/23 15:43 136 H 08/28/23 15:41 131 H 20 92 08/28/23 15:33 138 H 26 H 95 08/28/23 15:31 36.8 C 132 H 20 153/118 H 94 08/28/23 15:29 153/118 H O2 Del Method O2 Flow Rate FiO2 08/28/23 17:19 BiPAP 45 08/28/23 17:15 08/28/23 17:10 08/28/23 17:00 08/28/23 16:57 08/28/23 16:47 45 08/28/23 16:37 08/28/23 16:37 08/28/23 16:37 08/28/23 16:36 08/28/23 16:28 Nasal Cannula 3 08/28/23 16:25 Room Air 08/28/23 16:03 08/28/23 15:54 08/28/23 15:50 Room Air 08/28/23 15:45 Room Air 08/28/23 15:43 08/28/23 15:41 Room Air 08/28/23 15:33 08/28/23 15:31 Room Air 08/28/23 15:29 Laboratory Results Short CBC 08/28/23 Range/Units 15:36 WBC 11.88 H (4.8-10.8) K/ul Hgb 15.7 (14.0-18.0) g/dl Hct 45.5 (42.0-52.0) % Plt Count 405 H (130-400) K/uL BMP 08/28/23 15:36 Sodium 131 L Potassium 3.7 Chloride 94 L Carbon Dioxide 25 BUN 12 Creatinine 0.82 Glucose 424 H* Calcium 9.1 Liver Function 08/28/23 Range/Units 15:36 Total Bilirubin 0.9 (0.2-1.0) mg/dl Direct Bilirubin 0.2 (0-0.2) mg/dl AST 40 H (13-39) U/L ALT 53 H (7-52) U/L Alkaline Phosphatase 103 (34-104) U/L Albumin 3.5 (3.4-5.0) gm/dl Diagnostic Findings Chest X-Ray 08/28/23 15:35 XR chest 1V portable CLINICAL HISTORY: Sepsis. Shortness of breath. COMPARISON STUDY: No previous studies for comparison. FINDINGS: There is no pneumothorax. There are small bilateral pleural effusions. Interlobular septal thickening is noted. Bibasilar and left perihilar opacities are noted. The heart is moderately enlarged. IMPRESSION: Cardiomegaly with interstitial and alveolar pulmonary edema with small bilateral pleural effusions. ACT 112: Negative or not required by law. Electronically signed by: Haroon Corbett M.D. 08/28/2023 4:42 PM Chest CTA 08/28/23 16:15 CT ANGIOGRAPHY OF THE CHEST, PULMONARY EMBOLUS PROTOCOL CLINICAL HISTORY: Shortness of breath. Chest pain. COMPARISON STUDY: Chest radiograph performed earlier today. TECHNIQUE: Following IV administration of 119 mL of Optiray, helical axial images of the chest were obtained utilizing the pulmonary embolus protocol. Maximal intensity projections and sagittal and coronal reformats were viewed on an independent 3D workstation. IV contrast was administered without complica tion. Automated exposure control was utilized for the study. A dose lowering technique was utilized adhering to the principles of ALARA. FINDINGS: No pulmonary emboli are identified. The heart is moderately enlarged. There is no pericardial effusion. There are multiple mildly enlarged mediastinal lymph nodes. Index right paratracheal lymph node on image 148 of 243 measures 1.9 x 1.4 cm. There are cjlyq-[id number]-wvoxrkfv bilateral pleural effusions. No pneumothorax is present. Extensive interlobular septal thickening is noted. There are also moderate bilateral perihilar airspace opacities. Central airways are patent. There is extensive coronary artery calcification. The abdomen and pelvis CT will be reported separately. IMPRESSION: 1. No pulmonary emboli identified. 2. Cardiomegaly and extensive coronary artery calcification. Interstitial and alveolar pulmonary edema with small to moderate bilateral pleural effusions. 3. Mildly enlarged mediastinal lymph nodes. These are nonspecific although likely related to pulmonary edema. ACT 112: Negative or not required by law. Electronically signed by: Haroon Corbett M.D. 08/28/2023 4:48 PM Abdomen/Pelvis CT 08/28/23 16:[address] WITH IV CONTRAST CT DOSE: 2425.99 mGy.cm HISTORY: Acute chest abdominal pain abd pain TECHNIQUE: Multiaxial CT images of the abdomen and pelvis were performed following the IV administration of 119 cc of Optiray, A dose lowering technique was utilized adhering to the principles of ALARA. COMPARISON STUDY: CTA chest of same day FINDINGS: Moderate layering pleural effusions. Extensive interstitial and alveolar opacities with bibasilar consolidation. Cardiomegaly. Hypoattenuation of the left ventricular myocardium with decreased enhancement. No free air. Unremarkable spleen, pancreas and gallbladder. Hepatic steatosis. Probable cyst of the left hepatic lobe, 2.3 cm. The liver is mildly enlarged. No hydronephrosis. There are a few nonobstructing calculi noted within the bilateral kidneys measuring up to 4 mm. Bilateral hypodense foci of the kidneys suggestive of renal cysts measuring up to 1.5 cm on the right. Prostatomegaly. Unremarkable urinary bladder. Atherosclerosis of the aorta without aneurysm. No lymphadenopathy. No bowel obstruction or bowel wall thickening. Mild to moderate colonic fecal retention. Normal appendix. No acute fracture. Chronic appearing L3 wedge deformity. IMPRESSION: 1. No bowel obstruction or bowel wall thickening. 2. Nonobstructing bilateral nephrolithiasis. 3. Moderate pleural effusions with pulmonary edema and bibasilar consolidation. 4. Cardiomegaly with coronary arterial calcifications. Decreased enhancement of the left ventricular myocardium which involves the apex, lateral and septal walsh compatible with age-indeterminate myocardial infarct. Correlate with serum troponin's. ACT 112: Negative or not required by law. The above report was generated using voice recognition software. It may contain grammatical, syntax or spelling errors. Electronically signed by: Elan Stewart M.D. 08/28/2023 4:50 PM
[2023-08-28] MEDS: HEPARIN SOD (PORCINE) 1000 UNIT/ML IV ONE (17:58)
[2023-08-28] MEDS: HEPARIN SODIUM/DEXTROSE 25,000 UNITS/500 ML BAG IV SCH (17:58)
[2023-08-28] MEDS: Heparin IV Adult Wt-Based Low-Dose w/ INITIAL Bolus Protocol IV STA (18:02)
[2023-08-28] MEDS: METOPROLOL TARTRATE 1 MG/ML VIAL IV STA (18:55)
[2023-08-28 19:50] LABS: Appearance Urine Clear (Clear); Bacteria Urine Automated None Seen (None Seen); Bilirubin Urine Negative (Negative); Blood Urine Negative (Negative); Cast Urine Automated 0-2 /lpf (0-2); Color Urine Yellow; Epithelial Cell Urine Auto 0-2 /hpf (0-2); Glucose Urine UA 3+ (Negative); Ketones Urine Trace (Negative); Leukocyte Esterase Urine Negative (Negative); Nitrite Urine Negative (Negative); Protein Urine Trace (Negative); RBC Urine Automated 0-2 /hpf (0-2); Specific Gravity Urine > 1.045 (1.000-1.030); Urobilinogen Urine Negative (Negative); WBC Urine Automated 0-5 /hpf (0-5); pH Urine 6.5 (4.5-7.5)
[2023-08-28] MEDS ORDERED: CARBOHYDRATES FOR HYPOGLYCEMIA PO PRN (20:13)
[2023-08-28] MEDS ORDERED: PHARMACY GLYCEMIC MGMT CONSULT PRN (20:13)
[2023-08-28] MEDS ORDERED: GLUCOSE 10 TAB/TUBE PO PRN (20:13)
[2023-08-28] MEDS ORDERED: GLUCAGON FOR INJ 1 MG VIAL SQ PRN (20:13)
[2023-08-28] MEDS ORDERED: MoRPHine SULFATE 2 MG/ML CARP IV PRN (20:13)
[2023-08-28] MEDS ORDERED: GLUCOSE 40% GEL 15 GM TUBE PO PRN (20:13)
[2023-08-28] MEDS ORDERED: DEXTROSE 50% 50 ML SYRINGE IV PRN (20:13)
[2023-08-28] MEDS ORDERED: NITROGLYCERIN SL 0.4 MG/TAB TAB SL PRN (20:13)
--- NOTE | 2023-08-28 20:27 | Pharmacy Report ---
Pharmacy Glycemic Short Note 2 - Date of Service August 28, 2023 - Glycemic Short BSG Results (Last 24 hours): 08/28/23 08/28/23 08/28/23 15:36 15:37 17:26 Glucose 424 H* POC Glucose 291 H POC Glucose (other) 405 H* OUTPATIENT ANTIDIABETIC REGIMEN: * Jardiance 10 mg PO AM * Metformin XR 1500 mg PO AM * HbA1c pending for 08/29/23 ASSESSMENT: * 53 yo M admitted on 08/28/23 secondary to NSTEMI. Pharmacy has been consulted to assist with inpatient glycemic management. Patient is a Type 2 diabetic as an outpatient. Please refer to outpatient regimen and most recent HbA1c above. * BSGs have been 424-405-291 mg/dL. Patient is NPO. On ceftriaxone for possible pneumonia. On heparin drip. * Received 6 units IV insulin bolus in ED. BSG improved as seen above. Will start Novolog now based on weight/stress of 2-3. Give Lantus 10 units this evening and reassess basal tomorrow. PLAN FOR INPATIENT GLYCEMIC CONTROL: * Hold outpatient oral diabetes medications * Basal insulin * Lantus 10 units SC HS * Bolus insulin * NovoLog per scale ACHS or Q6hrs while NPO * Goal Range: Low 110 mg/dL - High 140 mg/dL * Correction Factor: 20 mg/dL/unit * Nutritional / Prandial insulin per carb ratio of 1 unit per 7 grams CHO consumed
[2023-08-28] MEDS: cefTRIAXone SODIUM 2,000 MG/50 ML BAG IV SCH (20:54)
[2023-08-28] MEDS: MAGNESIUM SULFATE / D5W 1 GM/100 ML BAG IV ONE (20:54)
[2023-08-28] MEDS: METOPROLOL TARTRATE 25 MG TAB PO SCH (20:55)
[2023-08-28] MEDS: INSULIN ASPART PER UNIT CHARGE SC SCH (20:55)
[2023-08-28] MEDS: LANTUS PER UNIT CHARGE SQ SCH (20:55)
[2023-08-28] MEDS: ATORVASTATIN 40 MG TAB PO SCH (20:56)
--- NOTE | 2023-08-28 21:09 | XCELERA ---
[id number] \\[id number]
[2023-08-28] MEDS: FUROSEMIDE 40 MG/4 ML VIAL IV ONE (22:32)
[2023-08-29] MEDS: INSULIN ASPART PER UNIT CHARGE SC SCH ×2 (00:24→12:14)
[2023-08-29 01:42] LABS: ANTI-Xa, UFH(UnfractionatedHep 0.11 IU/ml (0.3-0.7)
--- NOTE | 2023-08-29 08:38 | Cardiology Consultation ---
Date of Consultation August 29, 2023 Assessment & Plan (1) Acute on chronic heart failure with reduced ejection fraction and diastolic dysfunction: (2) Acute hypoxic respiratory failure: (3) Non-ST elevation AZ (NSTEMI): (4) Pulmonary edema: Plan Patient admitted for worsening SOB/chest tightness/hypoxia, consistent with acute HFrEF after being non compliant with all medications for at least 6-12 months. Severely dilated and severely reduced LV function on echo at about 15%. Continue IV diuretics - furosemide 40 mg IV BID today to improve volume status. Continue supplemental O2 and BIPAP as needed. Supplement potassium to maintain K 4-5 Monitor I+O's. Maintain negative balance. Weight trending down. Monitor renal function/electrolytes Echo with wall motion abnormalities consistent with probable multivessel coronary disease. start ASA 81 mg daily. Continue IV heparin for now. Resume statin- atorvastatin 40 mg daily Metoprolol succinate initiated. Need to consider future cardiac cath, however, patient's respiratory status needs to improve before we proceed with invasive procedure. Need to also consider viability study. Persistent sinus tachycardia is compensatory to maintain cardiac output noted given low EF. Transition metoprolol tartrate to metoprolol succinate 25 mg BID. Titrate as needed/allowed. DM management per hospitalist. A1C is 13 Further recommendations pending evaluation with Dr. Corrales. Case discussed with Dr. Corrales. I spent a total of 60 minutes on the date of service in preparation, delivery, and documentation of the care provided to this patient, excluding any time spent in the performance of separately billed services. Marisela Dominguez PA-C Department of Cardiology, [facility] This chart was completed in part utilizing Speech Voice Recognition Software. Grammatical errors, random word insertions, pronoun errors, and incomplete sentences are an occasional consequence of this system due to software limitations, ambient noise, and hardware issues. Any formal questions or concerns about the content, text, or information contained within the body of this dictation should be directly addressed to the provider for clarification. Supervising Physician Co-Signing Physician Notes Attending attestation. I have personally performed a history and physical examination on the patient. I have reviewed the advance practitioner's documentation, and I agree with, and take responsibility for the plan of care. 53-year-old male with history of noncompliance presents to the emergency department with chest discomfort and significant shortness of breath of more than 4 days duration. Elevated troponin secondary to acute heart failure with reduced ejection fraction. Chronicity of cardiomyopathy unknown however, recent AZ cannot be excluded. Currently pain-free and clinically improved with diuresis and improved heart rate control, addition of beta-armando. Prior outpatient dose of metoprolol was 100 mg twice daily. Recommend IV diuresis with Lasix 40 mg twice daily. Monitor fluid balance, daily weight, GFR, and electrolyte. Discontinue low-dose metoprolol tartrate in favor of metoprolol succinate 25 mg twice daily. Titrate as tolerated to improve heart rate and blood pressure control. Consider addition of Entresto in the next 24 to 48 hours. Further ischemic evaluation warranted. Plan cardiac catheterization during hospitalization pending clinical improvement from a heart failure perspective. I spent a total of 55 minutes on the date of service in preparation, delivery, and documentation of the care provided to this patient, excluding any time spent in the performance of separately billed services. History of Present Illness Reason for Consultation: CHF Requesting Physician: Dr. Dial Attending Physician: Dr. Corrales History of Present Illness Patient is a 53 year old male who presented to [facility] yesterday with complaints of chest pain and dyspnea. History includes: 1. Hypertension 2. DM 3. dyslipidemia 4. Chronic tobacco abuse 5. Medication non compliance and medical non compliance with appts Patient reportedly had stopped taking all his medications approx 1 year ago. Approx 2 weeks ago, patient recalls becoming acutely "ill", with nausea, vomiting, diaphoresis and chest pain. Symptoms lasted 3-5 days and then he slowly recovered. Then about 3 days ago, he developed worsening SOB with exertion and chest tightness. SOB occurred with minimal ambulation in his apartment. Worsening cough also noted. No fever or chills. He went for an acute visit yesterday in [place] due to these symptoms. He was found to be tachycardia and hypoxic. Was sent to the ER via EMS. In ER EKG demonstrated sinus tachycardia with possible ST elevation in anterior leads. He was hypoxic and started on BIPAP therapy. Treated with IV Lasix. Cardiology contacted in regards to possible cath, however given his acute SOB/hypoxic and symptoms of CHF, med management recommended initially. Echo revealed severely reduced LV function with severely dilated LV. EF approx 15%. Elevated troponin noted but fairly flat ranging 413-360, consistent with CHF. At time of consult, patient resting in bed. He reports improved SOB at rest compared to admission. Good diuresis overnight. He denies chest pain/tightness currently. Conversational dyspnea noted. Allergies Allergy/AdvReac Type Severity Reaction Status Date / Time levetiracetam [From [facility]] Allergy Unknown Verified 08/28/23 19:52 Home Medications Medication Instructions Recorded Confirmed Type amlodipine 10 mg tablet 10 mg PO DAILY 06/28/22 08/28/23 History atorvastatin 40 mg tablet 40 mg PO DAILY 06/28/22 08/28/23 History buspirone 10 mg tablet 10 mg PO TID 06/28/22 08/28/23 History dulaglutide 0.75 mg/0.5 mL 0.75 mg subcut Q7D 06/28/22 08/28/23 History subcutaneous pen injector (Trulicity) hydrochlorothiazide 25 mg tablet 25 mg PO DAILY 06/28/22 08/28/23 History metoprolol tartrate 100 mg tablet 100 mg PO AMHS 06/28/22 08/28/23 History oxcarbazepine 150 mg tablet 150 mg PO BID #60 tabs 06/28/22 08/28/23 Rx paroxetine HCl 40 mg tablet (Paxil) 40 mg PO DAILY 06/28/22 08/28/23 History valsartan 320 mg tablet 320 mg PO DAILY 06/28/22 08/28/23 History empagliflozin 10 mg tablet 10 mg PO QAM 08/28/23 08/28/23 History (Jardiance) escitalopram oxalate 10 mg tablet 10 mg PO DAILY 08/28/23 08/28/23 History metformin 750 mg tablet,extended 1,500 mg PO DAILY 08/28/23 08/28/23 History release 24 hr trazodone 50 mg tablet 50 mg PO HS 08/28/23 08/28/23 History Patient History Medical History Closed fracture of cervical vertebra without spinal cord injury Dissection of vertebral artery Carotid artery occlusion Family History Mother Diabetes Hypertension Grandmother (Maternal) No problems noted. Grandfather (Maternal) No problems noted. Social History Smoking Status: Current every day smoker Tobacco Type: Cigarettes Cigarettes Per Day: 1 pack a day; Hx Alcohol Use: No Hx Substance Use: No Preferred Language: Kosovan Communication Ability: Effective Pastry Supervisor Required: No Beliefs That Will Affect Care: None marital status: Single Current Living Situation: Family Current Living Situation Comment: lives with sister and sisters boyfriend Other Information That Helps Us Care for You: No Feels Safe at Home: Yes Safety Concerns: Feels Safe At This Time caffeine: Yes Assistive Devices: Cane Review of Systems Review of Systems: All systems reviewed & are unremarkable except as noted in HPI & below Physical Exam Constitutional: + ill appearing Respiratory: + cough and able to speak in complete se ntences (Conversational dyspnea noted) Auscultation: + diminished lung sounds and + rales Cardiovascular: Rate/Rhythm: regular rhythm and + tachycardic Heart Sounds: + murmur (II/ systolic murmur at apex) Vessels: + JVD Extremities: no edema (No significant edema) Gastrointestinal (Abdomen): normal bowel sounds, soft, nontender, no hepatosplenomegaly Neurologic: PERRL, EOMI, accommodation nl, no face palsy, no dysarthria Results & Data Vital Signs (Past 12 Hours) Vital Signs Temp Pulse Pulse Resp BP Pulse Ox O2 Del Method 08/29/23 07:42 36.4 C L 113 H 20 113/92 95 Nasal Cannula 08/29/23 07:35 114 H 08/29/23 03:56 108 H 22 97 08/29/23 03:19 36.6 C 110 H 28 H 120/91 96 BiPAP 08/28/23 23:59 117 H 25 H 98 08/28/23 22:07 BiPAP 08/28/23 22:00 115 H 08/28/23 22:00 112 H 21 122/93 97 BiPAP 08/28/23 21:30 111 H 20 115/93 97 BiPAP 08/28/23 21:00 113 H 20 127/100 97 BiPAP 08/28/23 20:40 115 H O2 Flow Rate FiO2 08/29/23 07:42 4 08/29/23 07:35 08/29/23 03:56 35 08/29/23 03:19 08/28/23 23:59 40 08/28/23 22:07 08/28/23 22:00 08/28/23 22:00 08/28/23 21:30 08/28/23 21:00 08/28/23 20:40 Laboratory Results Cardiac Enzymes 08/28/23 08/28/23 08/28/23 Range/Units 15:36 17:58 20:34 AST 40 H (13-39) U/L Troponin I High Sens 413.9 H* 472.1 H* 443.0 H* (0-20) pg/ml B-Natriuretic Peptide (0-100) pg/ml 08/29/23 08/29/23 Range/Units 00:28 08:07 AST 32 (13-39) U/L Troponin I High Sens 368.6 H* 361.7 H* (0-20) pg/ml B-Natriuretic Peptide 1401 H (0-100) pg/ml Coagulation 08/29/23 Range/Units 08:07 B-Natriuretic Peptide 1401 H (0-100) pg/ml Lipids 08/29/23 Range/Units 08:07 Triglycerides 109 (0-150) mg/dl Cholesterol 170 (0-200) mg/dl HDL Cholesterol 31 mg/dl Cholesterol/HDL Ratio 5.5 H (0-5) CBC 08/28/23 08/29/23 Range/Units 15:36 08:07 WBC 11.88 H 13.81 H (4.8-10.8) K/ul RBC 5.43 5.18 (4.70-6.10) M/uL Hgb 15.7 15.0 (14.0-18.0) g/dl Hct 45.5 43.4 (42.0-52.0) % Plt Count 405 H 359 (130-400) K/uL Neut # (Auto) 9.71 H (1.40-6.50) K/uL Lymph # (Auto) 1.35 (1.20-3.40) K/uL [place] # (Auto) 0.71 H (0.11-0.59) K/uL Eos # (Auto) 0.00 (0.00-0.50) K/uL Baso # (Auto) 0.04 (0.00-0.20) K/uL Comprehensive Metabolic Panel 07/23/24 07/24/24 Range/Units 15:36 08:07 Sodium 131 L 136 (136-145) mmol/L Potassium 3.7 3.4 L (3.5-5.1) mmol/L Chloride 94 L 100 (98-107) mmol/L Carbon Dioxide 25 26 (21-32) mmol/L BUN 12 14 (6-23) mg/dl Creatinine 0.82 0.66 (0.6-1.4) mg/dl Glucose 424 H* 203 H (70-99(Fasting)) mg/dl Calcium 9.1 8.5 L (8.6-10.3) mg/dl Direct Bilirubin 0.2 (0-0.2) mg/dl AST 40 H 32 (13-39) U/L ALT 53 H 48 (7-52) U/L Alkaline Phosphatase 103 95 (34-104) U/L Total Protein 6.9 6.3 (6.0-8.3) gm/dl Albumin 3.5 3.2 L (3.4-5.0) gm/dl Intake and Output 08/28/23 08/29/23 08/29/23 22:59 06:59 14:59 Intake Total 1296 / 1511 215 / 1511 211.2 / 211.2 Output Total 1050 / 2325 1275 / 2325 950 / 950 Balance 246 / -814 -1060 / -814 -738.8 / -738.8 Intake: IV 1096 / 1311 215 / 1311 211.2 / 211.2 Heparin Sodium/Dextrose 25,000 46 / 161 115 / 161 211.2 / 211.2 units In 500 ml @ 1,200 UNITS/ HR 24 mls/hr IV .[id number] [facility] Rx #:[id number] Magnesium Sulfate / D5w 1 gm In 100 / 100 100 ml @ 50 mls/hr IV ONE ONE Rx#:[id number] Sodium Chloride 0.9% 1,000 ml @ 1000 / 1000 999 mls/hr IV .Q1H1M [facility] Rx#: [id number] cefTRIAXone SODIUM 2,000 mg In 50 / 50 50 ml @ 100 mls/hr IV Q24H [facility] Rx#:[id number] Oral 200 / 200 Output: Urine 300 / 300 Urine Amount (Catheter) 750 / 5 127 / 2024 950 / 950 Thurman/Indwelling 750 / 2025 1275 2024 950 / 950 Other: Other Intake Source NPO Weight 103.9 kg Weight Measurement Method Built in [facility] Diagnostic Findings Telemetry reviewed: Appears sinus tach with a rate of 110-120 bmp; occ PVC EKG reviewed from admission: Sinus tach at [address] elevation in V1-V3. Non specific conduction delay. LAFB Possible old anteroseptal infarct Repeat EKG this morning: Sinus tach RBBB LAD Anteroseptal infarct Prior ST elevation improved. Echocardiogram reviewed from 08/28/23 Severely reduced LVEF severely dilated LV anterior, anteroseptal, and apical myocardium is thinned suggesting prior AZ severe wall motion abnormalities in multiple territories. Moderate MR Chest X-Ray 08/28/23 15:35 XR chest 1V portable CLINICAL HISTORY: Sepsis. Shortness of breath. COMPARISON STUDY: No previous studies for comparison. FINDINGS: There is no pneumothorax. There are small bilateral pleural effusions. Interlobular septal thickening is noted. Bibasilar and left perihilar opacities are noted. The heart is moderately enlarged. IMPRESSION: Cardiomegaly with interstitial and alveolar pulmonary edema with small bilateral pleural effusions. ACT 112: Negative or not required by law. Electronically signed by: Haroon Corbett M.D. 08/28/2023 4:42 PM Chest CTA 08/28/23 16:15 IMPRESSION: 1. No pulmonary emboli identified. 2. Cardiomegaly and extensive coronary artery calcification. Interstitial and alveolar pulmonary edema with small to moderate bilateral pleural effusions. 3. Mildly enlarged mediastinal lymph nodes. These are nonspecific although likely related to pulmonary edema. Electronically signed by: Haroon Corbett M.D. 08/28/2023 4:48 PM Abdomen/Pelvis CT 08/28/23 16:17 IMPRESSION: 1. No bowel obstruction or bowel wall thickening. 2. Nonobstructing bilateral nephrolithiasis. 3. Moderate pleural effusions with pulmonary edema and bibasilar consolidation. 4. Cardiomegaly with coronary arterial calcifications. Decreased enhancement of the left ventricular myocardium which involves the apex, lateral and septal walsh compatible with age-indeterminate myocardial infarct. Correlate with serum troponin's. The above report was generated using voice recognition software. It may contain grammatical, syntax or spelling errors. Electronically signed by: Elan Stewart M.D. 08/28/2023 4:50 PM Medications Administered Current Inpatient Medications Aspirin (Aspirin 81 Mg Ectab) 81 mg PO DAILY YEIM[facility] Stop: 09/28/23 08:59 Atorvastatin Calcium (Atorvastatin 40 Mg Tab) 40 mg PO HS [facility]IM[facility] Stop: 09/27/23 20:59 Last Admin: 08/28/23 20:56 Dose: 40 mg Dextrose (Dextrose 50% 50 Ml Syringe) 25 - 50 ml IV UD PRN; Protocol PRN Reason: Hypoglycemia Protocol Stop: 09/27/23 20:12 Furosemide (Furosemide 40 Mg/4 Ml Vial) 40 mg IV BIDM [facility]IM[facility] Stop: 09/28/23 07:59 Glucagon (Glucagon For Inj 1 Mg Vial) 1 mg SQ UD PRN; Protocol PRN Reason: Hypoglycemia Protocol Stop: 09/27/23 20:12 Glucose (Glucose 40% Gel 15 Gm Tube) 15 - 30 gm PO UD PRN; Protocol PRN Reason: Hypoglycemia Protocol Stop: 09/27/23 20:12 Glucose (Glucose 10 Tab/Tube) 4 - 8 tab PO UD PRN; Protocol PRN Reason: Hypoglycemia Treatment Stop: 09/27/23 20:12 Heparin Sodium/Dextrose (Heparin Sodium/Dextrose) 25,000 units in 500 mls @ 24 mls/hr IV .[id number] [facility]IM[facility]; Protocol Stop: 09/27/23 17:44 Last Titration: 08/29/23 07:12 Dose: 1,200 units/hr, 24 mls/hr Ceftriaxone Sodium (Rocephin) 2,000 mg in 50 mls @ 100 mls/hr IV Q24H [facility]; Protocol Stop: 09/04/23 20:59 Last Infusion: 08/28/23 22:06 Dose: Infused Insulin Aspart (Insulin Aspart Per Unit Charge) 0 units SC Q6 [facility]; Protocol Stop: 09/28/23 00:00 Last Admin: 08/29/23 06:00 Dose: 4 units Insulin Glargine (Lantus Per Unit Charge) 10 units SQ HS [facility]; Protocol Stop: 09/27/23 20:59 Last Admin: 08/28/23 20:55 Dose: 10 units Metoprolol Tartrate (Metoprolol Tartrate 1 Mg/Ml Vial) 5 mg IV Q5M PRN PRN Reason: Tachycardia Last Admin: 08/28/23 17:15 Dose: 5 mg Metoprolol Tartrate (Metoprolol Tartrate 25 Mg Tab) 12.5 mg PO BID [facility]IM[facility] Stop: 09/27/23 20:59 Last Admin: 08/28/23 20:55 Dose: 12.5 mg Miscellaneous (Carbohydrates For Hypoglycemia ) 15 - 30 gm PO UD PRN PRN Reason: Hypoglycemia Protocol Stop: 09/27/23 20:12 Miscellaneous Information (Pharmacy Glycemic Mgmt Consult) 1 each N/A UD PRN PRN Reason: Consult Stop: 09/27/23 20:12 Morphine Sulfate (Morphine Sulfate 2 Mg/Ml Carp) 2 mg IV Q4H PRN PRN Reason: Pain Stop: 09/11/23 20:12 Nitroglycerin (Nitroglycerin Sl 0.4 Mg/Tab Tab) 0.4 mg SL Q5M PRN PRN Reason: Chest Pain Stop: 09/27/23 20:12
[2023-08-29 08:41] LABS: Hematocrit (blood only) 43.4 % (42.0-52.0); Mean Corpuscular Hgb Conc 34.6 g/dL (32.0-36.0); Mean Corpuscular Volume 83.8 fL (80.0-100.0); Mean Platelet Volume 10.4 fL (9.4-12.4); Platelet Count 359 K/uL (130-400); RDW Coefficient of Variation 13.6 % (11.5-14.5); RDW Standard Deviation 41.5 fL (36.4-46.3); Red Blood Count 5.18 M/uL (4.70-6.10); White Blood Count 13.81 K/ul (4.8-10.8)
[2023-08-29] MEDS ORDERED: FUROSEMIDE 40 MG/4 ML VIAL IV SCH (09:00)
[2023-08-29 09:01] LABS: Albumin Level 3.2 gm/dl (3.4-5.0); BUN Creatinine Ratio 21.2 (10-20); Bilirubin,Total 0.6 mg/dl (0.2-1.0); Calcium 8.5 mg/dl (8.6-10.3); Chol HDL Ratio 5.5 (0-5); Creatinine Clr Calc Pharmacy 163.9 ml/min; Est GFR (African American) 127.9 ml/min; Est GFR (Non-African American) 110.4 ml/min; Globulin 3.1 gm/dl (2.5-4.0); Magnesium 1.7 mg/dl (1.7-2.4); Phosphorus 3.5 mg/dl (2.5-4.9); Potassium 3.4 mmol/L (3.5-5.1); Total Protein 6.3 gm/dl (6.0-8.3)
[2023-08-29] MEDS: FUROSEMIDE 40 MG/4 ML VIAL IV SCH (09:05)
[2023-08-29] MEDS: ASPIRIN 81 MG ECTAB PO SCH (09:05)
[2023-08-29 09:08] LABS: ANTI-Xa, UFH(UnfractionatedHep 0.14 IU/ml (0.3-0.7)
[2023-08-29 09:57] LABS: Estimated Average Glucose 324 mg/dl; Hemoglobin A1C 12.9 % (4.5-5.6)
--- NOTE | 2023-08-29 10:08 | Pharmacy Report ---
Pharmacy Glycemic Short Note 2 - Date of Service August 29, 2023 - Glycemic Short BSG Results (Last 24 hours): 08/28/23 08/28/23 08/28/23 15:36 15:37 17:26 Glucose 424 H* POC Glucose 291 H POC Glucose (other) 405 H* 08/28/23 08/29/23 08/29/23 20:37 00:09 05:44 Glucose POC Glucose 353 H* 276 H 193 H POC Glucose (other) 08/29/23 08:07 Glucose 203 H POC Glucose POC Glucose (other) OUTPATIENT ANTIDIABETIC REGIMEN: * Jardiance 10 mg PO AM * Metformin XR 1500 mg PO AM * HbA1c: 12.9% (08/29/23) ASSESSMENT: 08/28: * Mr. Camacho received 10 units basal + 11 units bolus prior to bedtime last night. BSGs were: [phone] mg/dL. * Fasting BSG improved to 193 mg/dL this AM. Given patient's A1c, he will likely require basal insulin upon discharge. Will double basal dose this AM as suspect patient is significantly basal deficient. Outpatient fill records show no insurance claims for metformin or jardiance in over a year. * Continue Novolog based on weight/stress of 3 for now. 08/27: * 53 yo M admitted on 08/28/23 secondary to NSTEMI. Pharmacy has been consulted to assist with inpatient glycemic management. Patient is a Type 2 diabetic as an outpatient. Please refer to outpatient regimen and most recent HbA1c above. * BSGs have been [phone] mg/dL. Patient is NPO. On ceftriaxone for possible pneumonia. On heparin drip. * Received 6 units IV insulin bolus in ED. BSG improved as seen above. Will start Novolog now based on weight/stress of 2-3. Give Lantus 10 units this evening and reassess basal tomorrow. PLAN FOR INPATIENT GLYCEMIC CONTROL: * Hold outpatient oral diabetes medications * Basal insulin * Lantus 20 units SC HS * Bolus insulin * NovoLog per scale ACHS or Q6hrs while NPO * Goal Range: Low 110 mg/dL - High 140 mg/dL * Correction Factor: 15 mg/dL/unit * Nutritional / Prandial insulin per carb ratio of 1 unit per 5 grams CHO consumed
[2023-08-29] MEDS: HEPARIN SOD (PORCINE) 1000 UNIT/ML IV ONE (10:48)
[2023-08-29] MEDS: POTASSIUM CHLORIDE CRTAB 20 MEQ TABCR PO SCH ×2 (10:49→20:11)
[2023-08-29] MEDS ORDERED: INSULIN ASPART PER UNIT CHARGE SC SCH (11:30)
[2023-08-29] MEDS: METOPROLOL SUCC 25MG EXT REL TAB PO SCH (11:33)
--- NOTE | 2023-08-29 13:49 | Hospitalist Progress Note ---
Date of Service August 29, 2023 Assessment & Plan (1) Acute on chronic heart failure with reduced ejection fraction and diastolic dysfunction: (2) Acute hypoxic respiratory failure: (3) NSTEMI (non-ST elevated myocardial infarction): (4) Pulmonary edema: (5) Bilateral pleural effusion: (6) Diabetes mellitus, type II: (7) Essential hypertension: (8) Generalized convulsive epilepsy: (9) Hyperlipidemia: (10) Tobacco abuse: (11) Hypomagnesemia: Plan 53 year old male with multiple medical conditions with HTN, DM, HLD, epilepsy, tobacco abuse etc who has been off of all medications for long time who presented to the ED from PCP office for CP. Ongoing N/V for about 6 days followed by chest pressure 3 days back, which got worse today and went to the PCP and was subsequently referred to the ED. Trop 400s. CXR- Cardiomegaly with interstitial and alveolar pulmonary edema with small bilateral pleural effusions. CTA chest 1. No pulmonary emboli identified. 2. Cardiomegaly and extensive coronary artery calcification. Interstitial and alveolar pulmonary edema with small to moderate bilateral pleural effusions. 3. Mildly enlarged mediastinal lymph nodes. These are nonspecific although likely related to pulmonary edema. CT A/P 1. No bowel obstruction or bowel wall thickening. 2. Nonobstructing bilateral nephrolithiasis. 3. Moderate pleural effusions with pulmonary edema and bibasilar consolidation. 4. Cardiomegaly with coronary arterial calcifications. Decreased enhancement of the left ventricular myocardium which involves the apex, lateral and septal walsh compatible with age-indeterminate myocardial infarct. Correlate with serum troponin's. Echo- severely reduced EF with severely dilated LV, anterior, anteroseptal and apical myocardium is thinned suggesting prior IA, severe wall motion abnormalities in multiple territories, severe hypokinesia to akinesia in LAD territory myocardium; additional severe hypokinesia in mid inferior, posterior and lateral segments which appear to spare the basal segments on contrast enhanced imaging; moderate eccentric MR Acute on chronic systolic and diastolic CHF with pulmonary edema, pleural effusions due to medication non compliance, Multivessel CAD, Cardiomyopathy with possible recent IA - Echo noted as above. BNP 1401. Cardio on board. Continue iv lasix 40 bid, daily weight, strict I and Os, daily labs. Cardiac cath once volume and respiratory status optimized. On ASA, statin, BB. Gradual initiation of GDMT. Elevated troponin- Trop trend flat in 400s. Could be from above vs recent IA. Cardio on board. Ischemic eval per cardio. On heparin drip. Acute hypoxic respiratory failure- due to above. S/p BIPAP. Now on NC. Continue iv diuresis, Continue to wean down oxygen as tolerated DM-2- HA1c 12.9. Glycemic pharmacist managing insulin. HTN- Continue metoprolol HLD- continue statin. lipid panel WNL. Tobacco abuse- hasn't smoked in 2 weeks. Declined nicoderm patch H/o epilepsy- not on meds Hypomagnesemia- resolved Hypokalemia- repleted, on supplementation, recheck in am Medication non-compliance- Hasn't taken any of his medications for at least 6-12 months DVT ppx- heparin drip. Can likely switch to sc heparin tomorrow. Disposition- Pending medical stablilty. On iv lasix. Cardiac cath once volume and respiratory status optimized. Time spent- approx 50 mins Admission and Anticipated Discharge Date Admission Date: August 28, 2023 Subjective Patient was seen and examined at bedside. He feels better today. He does not have any more chest pressure. SOB is improved. He is on NC. He denies any N/V, fever or chills. Review of Systems Review of Systems: All systems reviewed & are unremarkable except as noted in Subjective Physical Exam Physical Exam: General:Sitting comfortably in bed, on NC, not in acute distress HEENT: EOMI, PAULA Chest: Fair breath sounds bilaterally with rales CVS: Tachycardic, normal heart sounds Abdomen: Soft, non tender, not distended, normal bowel sounds Neuro: Awake, alert, oriented, conversing well, non focal Extremities: No edema Results & Data Results & Data Vital Signs (Past 12 Hours) Vital Signs Temp Pulse Pulse Resp BP BP Pulse Ox 08/29/23 10:50 113 H 127/97 08/29/23 10:35 36.4 C L 117 H 19 117/92 93 08/29/23 10:18 08/29/23 10:03 118 H 118/97 08/29/23 07:42 36.4 C L 113 H 20 113/92 95 08/29/23 07:35 114 H 08/29/23 03:56 108 H 22 97 08/29/23 03:19 36.6 C 110 H 28 H 120/91 96 O2 Del Method O2 Flow Rate FiO2 08/29/23 10:50 08/29/23 10:35 Nasal Cannula 6 08/29/23 10:18 Nasal Cannula 6 08/29/23 10:03 08/29/23 07:42 Nasal Cannula 4 08/29/23 07:35 08/29/23 03:56 35 08/29/23 03:19 BiPAP Laboratory Results Short CBC 08/28/23 08/29/23 Range/Units 15:36 08:07 WBC 11.88 H 13.81 H (4.8-10.8) K/ul Hgb 15.7 15.0 (14.0-18.0) g/dl Hct 45.5 43.4 (42.0-52.0) % Plt Count 405 H 359 (130-400) K/uL BMP 08/28/23 08/29/23 15:36 08:07 Sodium 131 L 136 Potassium 3.7 3.4 L Chloride 94 L 100 Carbon Dioxide 25 26 BUN 12 14 Creatinine 0.82 0.66 Glucose 424 H* 203 H Calcium 9.1 8.5 L Liver Function 08/28/23 08/29/23 Range/Units 15:36 08:07 Total Bilirubin 0.9 0.6 (0.2-1.0) mg/dl Direct Bilirubin 0.2 (0-0.2) mg/dl AST 40 H 32 (13-39) U/L ALT 53 H 48 (7-52) U/L Alkaline Phosphatase 103 95 (34-104) U/L Albumin 3.5 3.2 L (3.4-5.0) gm/dl Urine 08/28/23 Range/Units 19:24 Urine Color Yellow Urine Appearance Clear (Clear) Urine pH 6.5 (4.5-7.5) Ur Specific [place] > 1.045 H (1.000-1.030) Urine Protein Trace H (Negative) Urine Glucose (UA) 3+ H (Negative)
[2023-08-29 18:28] LABS: ANTI-Xa, UFH(UnfractionatedHep 0.25 IU/ml (0.3-0.7)
--- NOTE | 2023-08-29 19:34 | Electrocardiogram Report ---
Test Reason : Blood Pressure : / mmHG Vent. Rate : 128 BPM Atrial Rate : 128 BPM P-R Int : 112 ms QRS Dur : 128 ms QT Int : 408 ms P-R-T Axes : 036 -70 091 degrees QTc Int : 595 ms Sinus tachycardia Left anterior fascicular block Right bundle branch block Minimal voltage criteria for LVH, may be normal variant ( Ronaldo product ) Cannot rule out Anteroseptal infarct (cited on or before 28-AUG-2023) Abnormal ECG When compared with ECG of 28-AUG-2023 15:30, (unconfirmed) No significant change was found Confirmed by Ishan Stewart ([id number]) on 08/29/2023 7:34:18 PM Referred By: REFERRED SELF Confirmed By:Ishan Stewart
--- NOTE | 2023-08-29 20:03 | Electrocardiogram Report ---
Test Reason : Blood Pressure : / mmHG Vent. Rate : 114 BPM Atrial Rate : 114 BPM P-R Int : 152 ms QRS Dur : 138 ms QT Int : 466 ms P-R-T Axes : 023 -65 067 degrees QTc Int : 642 ms Sinus tachycardia Left anterior fascicular block Right bundle branch block Anteroseptal infarct (cited on or before 28-AUG-2023) Abnormal ECG When compared with ECG of 28-AUG-2023 17:08, (unconfirmed) No significant change Confirmed by Ishan Stewart ([id number]) on 08/29/2023 8:03:45 PM Referred By: REFERRED SELF Confirmed By:Ishan Stewart
[2023-08-29] MEDS: LANTUS PER UNIT CHARGE SQ SCH (20:34)
[2023-08-30 01:33] LABS: ANTI-Xa, UFH(UnfractionatedHep 0.23 IU/ml (0.3-0.7)
[2023-08-30 08:19] LABS: Hematocrit (blood only) 44.5 % (42.0-52.0); Hemoglobin 14.7 g/dl (14.0-18.0); Mean Corpuscular Hemoglobin 28.9 pg (25.0-34.0); Mean Corpuscular Volume 87.4 fL (80.0-100.0); Mean Platelet Volume 9.9 fL (9.4-12.4); Platelet Count 389 K/uL (130-400); RDW Coefficient of Variation 13.7 % (11.5-14.5); RDW Standard Deviation 43.6 fL (36.4-46.3); Red Blood Count 5.09 M/uL (4.70-6.10); White Blood Count 13.93 K/ul (4.8-10.8)
[2023-08-30] MEDS: LANTUS PER UNIT CHARGE SQ SCH (08:30)
[2023-08-30 08:36] LABS: BUN Creatinine Ratio 25.6 (10-20); Calcium 8.8 mg/dl (8.6-10.3); Creatinine Clr Calc Pharmacy 137.9 ml/min; Est GFR (African American) 119.4 ml/min; Est GFR (Non-African American) 103.1 ml/min; Magnesium 1.6 mg/dl (1.7-2.4); Phosphorus 4.2 mg/dl (2.5-4.9)
[2023-08-30 08:43] LABS: ANTI-Xa, UFH(UnfractionatedHep 0.33 IU/ml (0.3-0.7)
[2023-08-30] MEDS: MAGNESIUM OXIDE 400 MG TAB PO SCH (08:58)
--- NOTE | 2023-08-30 09:43 | XRay Report ---
XR chest 2V PA/lateral HISTORY: Shortness of breath. COMPARISON: Chest 08/28/2023. FINDINGS: No pneumothorax. The heart remains mildly enlarged. Perihilar hazy airspace opacities with diffuse interstitial thickening again noted. This has slightly progressed on the left. This likely re presents moderate pulmonary edema. Small bilateral pleural effusions have also slightly increased in size. No acute fractures. IMPRESSION: Cardiomegaly with moderate pulmonary edema and small bilateral pleural effusions. This has slightly p rogressed in the interval. ACT 112: Negative or not required by law. Electronically signed by: Jameson Dahl M.D. 08/30/2023 9:42 AM
--- NOTE | 2023-08-30 10:56 | Pharmacy Report ---
Pharmacy Glycemic Short Note 2 - Date of Service August 30, 2023 - Glycemic Short BSG Results (Last 24 hours): 08/29/23 08/29/23 08/29/23 11:24 16:23 20:21 Glucose POC Glucose 228 H 210 H 222 H 08/30/23 08/30/23 07:14 08:05 Glucose 232 H POC Glucose 237 H OUTPATIENT ANTIDIABETIC REGIMEN: * Jardiance 10 mg PO AM * Metformin XR 1500 mg PO AM * HbA1c: 12.9% (08/29/23) ASSESSMENT: 08/29: * Noah received 63 units of insulin yesterday, 20 basal + 43 bolus. BSGs were: [phone] mg/dL. * Fasting BSG today worsened to 237 mg/dL. Will double basal dose again today. Believe patient is significantly basal deficient given A1c. * Because postprandials were uncontrolled yesterday, will tighten Novolog further today. This is very aggressive dosing for this patient so will monitor closely as may need to back off once basal catches up. 08/28: * Mr. Camacho received 10 units basal + 11 units bolus prior to bedtime last night. BSGs were: [phone] mg/dL. * Fasting BSG improved to 193 mg/dL this AM. Given patient's A1c, he will likely require basal insulin upon discharge. Will double basal dose this AM as suspect patient is significantly basal deficient. Outpatient fill records show no insurance claims for metformin or jardiance in over a year. * Continue Novolog based on weight/stress of 3 for now. 08/27: * 53 yo M admitted on 08/28/23 secondary to NSTEMI. Pharmacy has been consulted to assist with inpatient glycemic management. Patient is a Type 2 diabetic as an outpatient. Please refer to outpatient regimen and most recent HbA1c above. * BSGs have been [phone] mg/dL. Patient is NPO. On ceftriaxone for possible pneumonia. On heparin drip. * Received 6 units IV insulin bolus in ED. BSG improved as seen above. Will start Novolog now based on weight/stress of 2-3. Give Lantus 10 units this evening and reassess basal tomorrow. PLAN FOR INPATIENT GLYCEMIC CONTROL: * Hold outpatient oral diabetes medications * Basal insulin * Lantus 20 units SC BID * Bolus insulin * NovoLog per scale ACHS or Q6hrs while NPO * Goal Range: Low 110 mg/dL - High 140 mg/dL * Correction Factor: 10 mg/dL/unit * Nutritional / Prandial insulin per carb ratio of 1 unit per 3 grams CHO consumed
--- NOTE | 2023-08-30 10:57 | Cardiology Progress Note ---
Date of Service August 30, 2023 Assessment & Plan (1) Acute on chronic heart failure with reduced ejection fraction and diastolic dysfunction: (2) Acute hypoxic respiratory failure: (3) Non-ST elevation [place] (NSTEMI): (4) Pulmonary edema: Plan 08/29/23: Patient admitted for worsening SOB/chest tightness/hypoxia, consistent with acute HFrEF after being non compliant with all medications for at least 6-12 months. Severely dilated and severely reduced LV function on echo at about 15%. Continue IV diuretics - furosemide 40 mg IV BID today to improve volume status. Continue supplemental O2 and BIPAP as needed. Supplement potassium to maintain K 4-5 Monitor I+O's. Maintain negative balance. Weight trending down. Monitor renal function/electrolytes Echo with wall motion abnormalities consistent with probable multivessel coronary disease. start ASA 81 mg daily. Continue IV heparin for now. Resume statin- atorvastatin 40 mg daily Metoprolol succinate initiated. Need to consider future cardiac cath, however, patient's respiratory status needs to improve before we proceed with invasive procedure. Need to also consider viability study. Persistent sinus tachycardia is compensatory to maintain cardiac output noted given low EF. Transition metoprolol tartrate to metoprolol succinate 25 mg BID. Titrate as needed/allowed. DM management per hospitalist. A1C is 13 08/30/23: Patient with 2.5 L output yesterday and thus far today. Weight trending downward. Continue to monitor with daily standing scale. BP improved. Continue IV diuretics- Furosemide 40 mg BID stable renal function and potassium. Magnesium level is low - will supplement with oral to limit IV fluids. recheck in AM Remains tachycardic, compensatory given low EF. Tolerating metoprolol succinate 25 mg BID. BP trending lower with IV diuresis and med adjustments. If allows, consider adding Entresto in the next 1-2 days. Chronicity of cardiomyopathy is unknown however, recent [place] cannot be excluded. Elevated troponin on admission, but fairly flat and not indicative of acute ACS. Currently chest pain free. Will need ischemic work up given severe LV dysfunction and wall motion abnormalities. will plan for diagnostic cardiac cath during hospitalization after respiratory and volume status improves. Further recommendations pending evaluation with Dr. Corrales. I spent a total of 40 minutes on the date of service in preparation, delivery, and documentation of the care provided to this patient, excluding any time spent in the performance of separately billed services. Marisela Dominguez PA-C Department of Cardiology, [facility] This chart was completed in part utilizing Speech Voice Recognition Software. Grammatical errors, random word insertions, pronoun errors, and incomplete sentences are an occasional consequence of this system due to software limitations, ambient noise, and hardware issues. Any formal questions or concerns about the content, text, or information contained within the body of this dictation should be directly addressed to the provider for clarification. Admission and Anticipated Discharge Date Admission Date: August 28, 2023 Supervising Physician Co-Signing Physician Notes Attending attestation. I have personally performed a history and physical examination on the patient. I have reviewed the advance practitioner's documentation, and I agree with, and take responsibility for the plan of care. Clinically improved with reduced oxygen requirements. Continued issues with orthopnea overnight. Continue IV diuresis with furosemide 40mg BID and potassium supplementation. Monitor fluid balance, daily weight, GFR, and electrolyte. Hold on addition of Entresto today due to borderline low SBP. Further ischemic evaluation warranted. Plan cardiac catheterization during hospitalization pending clinical improvement from a heart failure perspective. I spent a total of 30 minutes on the date of service in preparation, delivery, and documentation of the care provided to this patient, excluding any time spent in the performance of separately billed services. Subjective Patient resting in chair. He reports improving symptoms since admission. SOB improving and he is able to ambulate from bed to toilet with less dyspnea. No dizziness. No chest pain. Improved edema and abdominal bloating. Improving orthopnea. He slept well last night with BIPAP in place. Review of Systems Review of Systems: All systems reviewed & are unremarkable except as noted in HPI & below Physical Exam Constitutional: + ill appearing Respiratory: able to speak in complete sentences (Conversational dyspnea noted) Auscultation: + diminished lung sounds and + rales Cardiovascular: Rate/Rhythm: regular rhythm and + tachycardic Heart Sounds: + murmur (II/ systolic murmur at apex) Vessels: + JVD Extremities: no edema (No significant edema) Gastrointestinal (Abdomen): normal bowel sounds, soft, nontender, no hepatosplenomegaly Neurologic: PERRL, EOMI, accommodation nl, no face palsy, no dysarthria Results & Data Vital Signs (Past 12 Hours) Vital Signs Temp Pulse Pulse Resp BP Pulse Ox O2 Del Method 07/25/24 09:07 36.4 C L 115 H 17 115/89 92 Room Air 08/30/23 04:40 103 H 25 H 97 08/30/23 03:57 36.8 C 102 H 20 102/81 98 BiPAP 08/29/23 23:24 112 H 28 H 96 08/29/23 23:12 36.5 C 107 H 17 109/84 94 BiPAP FiO2 08/30/23 09:07 08/30/23 04:40 35 08/30/23 03:57 08/29/23 23:24 35 08/29/23 23:12 Laboratory Results CBC 08/30/23 Range/Units 08:05 WBC 13.93 H (4.8-10.8) K/ul RBC 5.09 (4.70-6.10) M/uL Hgb 14.7 (14.0-18.0) g/dl Hct 44.5 (42.0-52.0) % Plt Count 389 (130-400) K/uL Comprehensive Metabolic Panel 08/30/23 Range/Units 08:05 Sodium 134 L (136-145) mmol/L Potassium 4.0 (3.5-5.1) mmol/L Chloride 97 L (98-107) mmol/L Carbon Dioxide 26 (21-32) mmol/L BUN 20 (6-23) mg/dl Creatinine 0.78 (0.6-1.4) mg/dl Glucose 232 H (70-99(Fasting)) mg/dl Calcium 8.8 (8.6-10.3) mg/dl Intake and Output 08/29/23 08/30/23 08/30/23 22:59 06:59 14:59 Intake Total 929.633 / 1767.833 352 / 1767.833 186.167 / 186.167 Output Total 1000 / 2500 250 / 2500 Balance -70.367 / -732.167 102 / -732.167 186.167 / 186.167 Intake: IV 289.633 / 702.833 202 / 702.833 186.167 / 186.167 Heparin Sodium/Dextrose 25,000 239.633 / 652.833 202 / 652.833 186.167 / 186.167 units In 500 ml @ 1,500 UNITS/ HR 30 mls/hr IV .[id number] [facility] Rx #:[id number] cefTRIAXone SODIUM 2,000 mg In 50 / 50 50 ml @ 100 mls/hr IV Q24H [facility] Rx#:[id number] Oral 640 / 1065 150 / 1065 Output: Urine Amount (Catheter) 1000 / 2500 250 / 2500 Thurman/Indwelling 1000 / 2500 250 / 2500 Other: Weight 102.7 kg Weight Measurement Method Built in [facility] Diagnostic Findings Telemetry reviewed: Sinus tachycardia ranging 100-113 bmp. No concerning arrhythmias. Rare PVC's EKG this morning reviewed: Sinus tachycardia with LAFB RBBB No change from previous
--- NOTE | 2023-08-30 15:30 | Hospitalist Progress Note ---
Date of Service August 30, 2023 Assessment & Plan (1) Acute on chronic heart failure with reduced ejection fraction and diastolic dysfunction: (2) Acute hypoxic respiratory failure: (3) NSTEMI (non-ST elevated myocardial infarction): (4) Pulmonary edema: (5) Bilateral pleural effusion: (6) Diabetes mellitus, type II: (7) Essential hypertension: (8) Generalized convulsive epilepsy: (9) Hyperlipidemia: (10) Tobacco abuse: (11) Hypomagnesemia: Plan 53 year old male with multiple medical conditions with HTN, DM, HLD, epilepsy, tobacco abuse etc who has been off of all medications for long time who presented to the ED from PCP office for CP. Ongoing N/V for about 6 days followed by chest pressure 3 days back [employer], which got worse on the day of arrival and went to the PCP and was subsequently referred to the ED. He is being managed for the following: Trop 400s. CXR- Cardiomegaly with interstitial and alveolar pulmonary edema with small bilateral pleural effusions. CTA chest 1. No pulmonary emboli identified. 2. Cardiomegaly and extensive coronary artery calcification. Interstitial and alveolar pulmonary edema with small to moderate bilateral pleural effusions. 3. Mildly enlarged mediastinal lymph nodes. These are nonspecific although likely related to pulmonary edema. CT A/P 1. No bowel obstruction or bowel wall thickening. 2. Nonobstructing bilateral nephrolithiasis. 3. Moderate pleural effusions with pulmonary edema and bibasilar consolidation. 4. Cardiomegaly with coronary arterial calcifications. Decreased enhancement of the left ventricular myocardium which involves the apex, lateral and septal walsh compatible with age-indeterminate myocardial infarct. Correlate with serum troponin's. Echo- severely reduced EF with severely dilated LV, anterior, anteroseptal and apical myocardium is thinned suggesting prior PA, severe wall motion abnormalities in multiple territories, severe hypokinesia to akinesia in LAD territory myocardium; additional severe hypokinesia in mid inferior, posterior and lateral segments which appear to spare the basal segments on contrast enhanced imaging; moderate eccentric MR Acute on chronic systolic and diastolic CHF with pulmonary edema, pleural effusions due to medication non compliance, Multivessel CAD, Cardiomyopathy with possible recent PA Hypomagnesemia and hypokalemia Echo noted as above-EF around 15%. BNP 1401. Cardio on board. Continue iv lasix 40 bid, cardiac cath likely erasmo. GDMT being optimized. daily weight, strict I and Os, daily labs. On ASA, statin, BB. Gradual initiation of GDMT. Monitor and replete electrolytes. Elevated troponin- Trop trend flat in 400s. Could be from above vs recent PA. Cardio on board. Ischemic eval per cardio. On heparin drip. Acute hypoxic respiratory failure- due to above. S/p BIPAP. Now on NC. Continue iv diuresis, Continue to wean down oxygen as tolerated DM-2- HA1c 12.9. Glycemic pharmacist managing insulin. visual educator harrison. diabetic clinic on dc. HTN- Continue metoprolol HLD- continue statin. lipid panel WNL. Tobacco abuse- hasn't smoked in 2 weeks. Declined nicoderm patch H/o epilepsy- not on meds, reports last seizure 2011 and has been off of meds since about 2013. Medication non-compliance- Hasn't taken any of his medications for at least 6-12 months. States now he will take care of his meds and physician follow ups. DVT ppx- heparin drip. Disposition- Pending medical stablilty. On iv lasix. Cardiac cath once volume and respiratory status optimized. Time spent- approx 60 mins Admission and Anticipated Discharge Date Admission Date: August 28, 2023 Subjective Patient was seen and examined at bedside. Patient was sitting up in chair, on 3 L oxygen via nasal cannula, NAD, resting comfortably. Patient reports significant improvement in his symptoms/SOB since admission. Patient denies any fever or nausea or vomiting or chills or chest pain. He slept well overnight w/ BiPAP. Physical Exam Physical Exam: General: Sitting comfortably in bed, on 3L O2 via NC, not in acute distress HEENT: EOMI, PAULA Chest: Fair breath sounds bilaterally with rales CVS: Tachycardic, normal heart sounds Abdomen: Soft, non tender, not distended, normal bowel sounds Neuro: Awake, alert, oriented, conversing well, non focal Extremities: No edema Results & Data Results & Data Vital Signs (Past 12 Hours) Vital Signs Temp Pulse Pulse Resp BP Pulse Ox O2 Del Method 08/30/23 13:31 94 Nasal Cannula 08/30/23 11:33 36.4 C L 116 H 16 102/72 97 Nasal Cannula 08/30/23 09:07 36.4 C L 115 H 17 115/89 92 Room Air 08/30/23 08:00 Nasal Cannula 08/30/23 04:40 103 H 25 H 97 08/30/23 03:57 36.8 C 102 H 20 102/81 98 BiPAP O2 Flow Rate FiO2 08/30/23 13:31 2 08/30/23 11:33 4 08/30/23 09:07 08/30/23 08:00 4 08/30/23 04:40 35 08/30/23 03:57
[2023-08-30] MEDS: MAGNESIUM SULFATE / D5W 1 GM/100 ML BAG IV SCH (17:40)
[2023-08-30] MEDS: METOPROLOL TARTRATE 1 MG/ML VIAL IV STA (23:46)
[2023-08-30] MEDS: MAGNESIUM SULFATE / D5W 1 GM/100 ML BAG IV ONE (23:46)
[2023-08-30] MEDS: ALBUMIN 25% 12.5 GM/50 ML VIAL IV ONE (23:47)
[2023-08-31 06:47] LABS: Hematocrit (blood only) 40.2 % (42.0-52.0); Hemoglobin 13.5 g/dl (14.0-18.0); Mean Corpuscular Hemoglobin 28.8 pg (25.0-34.0); Mean Corpuscular Hgb Conc 33.6 g/dL (32.0-36.0); Mean Corpuscular Volume 85.7 fL (80.0-100.0); Mean Platelet Volume 9.9 fL (9.4-12.4); Platelet Count 336 K/uL (130-400); RDW Coefficient of Variation 13.5 % (11.5-14.5); RDW Standard Deviation 41.7 fL (36.4-46.3); Red Blood Count 4.69 M/uL (4.70-6.10); White Blood Count 11.99 K/ul (4.8-10.8)
[2023-08-31 07:05] LABS: BUN Creatinine Ratio 27.8 (10-20); Calcium 8.6 mg/dl (8.6-10.3); Creatinine Clr Calc Pharmacy 148.9 ml/min; Est GFR (African American) 123.4 ml/min; Est GFR (Non-African American) 106.5 ml/min; Magnesium 1.7 mg/dl (1.7-2.4); Phosphorus 4.9 mg/dl (2.5-4.9); Potassium 3.5 mmol/L (3.5-5.1)
[2023-08-31 07:26] LABS: ANTI-Xa, UFH(UnfractionatedHep 0.35 IU/ml (0.3-0.7)
--- NOTE | 2023-08-31 09:57 | Cardiology Progress Note ---
Date of Service August 31, 2023 Assessment & Plan (1) Acute on chronic heart failure with reduced ejection fraction and diastolic dysfunction: (2) Acute hypoxic respiratory failure: (3) Non-ST elevation [place] (NSTEMI): (4) Pulmonary edema: (5) Hypokalemia: (6) Hypomagnesemia: Plan Weight trending downward although recorded fluid balance -1.2 L since admission. Titrate Lasix to 80 mg twice daily. Monitor fluid balance, daily weight, GFR, and electrolytes. Add magnesium hydroxide 400 mg daily. Continue oral potassium supplementation 40 mEq twice daily. Heart rate improved overnight, however, elevated this a.m. With ongoing orthopnea, I do not believe he could tolerate a cardiac catheterization today. Continue BiPAP nightly and with napping. Continue current dose of beta-armando therapy. Unable to add Entresto at this time due to borderline hypotension. Addendum: Contacted by hospitalist due to x-ray evidence of worsening pulmonary edema. 1.3 L negative fluid balance since additional 40 mg of Lasix this a.m. Recommend additional 80 mg of IV furosemide now, BiPAP support, and initiation of IV Lasix infusion, 10 mg/h. Consider transfer to intensive care unit pending clinical response. I spent a total of 55 minutes on the date of service in preparation, delivery, and documentation of the care provided to this patient, excluding any time spent in the performance of separately billed services. Admission and Anticipated Discharge Date Admission Date: August 28, 2023 Subjective Patient seen examined the bedside. Notes somewhat worsening congestion and shortness of breath this a.m. Denies chest discomfort or heaviness. Heart rate in the 80s overnight however up into the 110s upon awakening. Continues to note significant orthopnea. Sleeping last night with BiPAP. Edema improved since admission. Repeat chest x-ray performed 08/30/2023 unchanged. Review of Systems Review of Systems: All systems reviewed & are unremarkable except as noted in Subjective Physical Exam Constitutional: well developed, well nourished and + ill appearing; no acute distress Respiratory: no respiratory distress, no labored breathing and no retractions Auscultation: + diminished lung sounds (Bases bilateral) and + rales (Bilateral) Cardiovascular: Rate/Rhythm: regular rate, regular rhythm and + tachycardic Heart Sounds: normal S1 and normal S2; no murmur Vessels: + JVD and radial pulses present Extremities: + edema (Trace bilateral ankle edema.) Gastrointestinal (Abdomen): Inspection/Auscultation: abdomen normal to inspection and normal bowel sounds; abdomen not distended Percussion/Palpation: abdomen soft; abdomen nontender, no guarding and abdomen not rigid Neurologic: CN's II-XI intact bilaterally and moves all extremities; no focal motor deficits Psychiatric: A+Ox3, euthymic affect Results & Data Vital Signs (Past 12 Hours) Vital Signs Temp Pulse Pulse Pulse Resp BP BP 08/31/23 07:20 36.4 C L 113 H 20 104/75 08/31/23 02:57 36.4 C L 100 H 18 08/31/23 02:17 97 H 22 08/30/23 23:59 86 100/76 08/30/23 23:46 92 H 114/76 08/30/23 22:51 36.0 C L 101 H 18 08/30/23 22:30 98 H 15 BP Pulse Ox O2 Del Method FiO2 08/31/23 07:20 97 BiPAP 08/31/23 02:57 114/83 95 BiPAP 08/31/23 02:17 96 35 08/30/23 23:59 08/30/23 23:46 08/30/23 22:51 114/72 95 BiPAP 08/30/23 22:30 95 35 Laboratory Results CBC 08/31/23 Range/Units 06:12 WBC 11.99 H (4.8-10.8) K/ul RBC 4.69 L (4.70-6.10) M/uL Hgb 13.5 L (14.0-18.0) g/dl Hct 40.2 L (42.0-52.0) % Plt Count 336 (130-400) K/uL Comprehensive Metabolic Panel 08/31/23 Range/Units 06:12 Sodium 134 L (136-145) mmol/L Potassium 3.5 (3.5-5.1) mmol/L Chloride 97 L (98-107) mmol/L Carbon Dioxide 27 (21-32) mmol/L BUN 20 (6-23) mg/dl Creatinine 0.72 (0.6-1.4) mg/dl Glucose 110 H (70-99(Fasting)) mg/dl Calcium 8.6 (8.6-10.3) mg/dl Intake and Output 08/30/23 08/31/23 08/31/23 22:59 06:59 14:59 Intake Total 1984.4 / 2836.001 305.434 / 2836.001 243.2 / 243.2 Output Total 950 / 2751 1000 / 2751 Balance 1034.4 / 85.001 -694.566 / 85.001 243.2 / 243.2 Intake: IV 384.4 / 876.001 305.434 / 876.001 243.2 / 243.2 Albumin 25% 12.5 gm In 50 ml @ 50 / 50 50 mls/hr IV [facility] Rx#: [id number] Heparin Sodium/Dextrose 25,000 334.4 / 676.834 156.267 / 676.834 243.2 / 243.2 units In 500 ml @ 1,600 UNITS/ HR 32 mls/hr IV .[id number] [facility] Rx #:[id number] Magnesium Sulfate / D5w 1 gm In 99.167 / 99.167 100 ml @ 50 mls/hr IV [facility] Rx#:[id number] cefTRIAXone SODIUM 2,000 mg In 50 / 50 50 ml @ 100 mls/hr IV Q24H [facility] Rx#:[id number] Oral 1600 / 1959 Output: Urine Amount (Catheter) 950 / 2750 1000 / 2750 Thurman/Indwelling 950 / 2750 1000 / 2750 Other: Other Intake Source NPO Weight 102 kg Weight Measurement Method Built in [facility]
[2023-08-31] MEDS: FUROSEMIDE 40 MG/4 ML VIAL IV ONE (10:56)
[2023-08-31] MEDS: MAGNESIUM OXIDE 400 MG TAB PO SCH (10:56)
--- NOTE | 2023-08-31 12:32 | Pharmacy Report ---
Pharmacy Glycemic Short Note 2 - Date of Service August 31, 2023 - Glycemic Short BSG Results (Last 24 hours): 08/30/23 08/30/23 08/30/23 16:16 20:45 23:09 Glucose POC Glucose 123 H 118 H 81 08/31/23 08/31/23 08/31/23 06:12 07:22 11:16 Glucose 110 H POC Glucose 112 H 155 H OUTPATIENT ANTIDIABETIC REGIMEN: * Jardiance 10 mg PO AM * Metformin XR 1500 mg PO AM * HbA1c: 12.9% (08/29/23) ASSESSMENT: 08/30: * Noah received 116 units of insulin yesterday, 40 of basal and 76 bolus. BSGs were [phone] mg/dL. * Fasting BSG this morning was 112 mg/dL. As such will revert back to once daily dosing in the evening and decrease the total daily dose. Will also loosen novolog scale. * Patient is ordered and tolerating a diet. 08/29: * Noah received 63 units of insulin yesterday, 20 basal + 43 bolus. BSGs were: [phone] mg/dL. * Fasting BSG today worsened to 237 mg/dL. Will double basal dose again today. Believe patient is significantly basal deficient given A1c. * Because postprandials were uncontrolled yesterday, will tighten Novolog further today. This is very aggressive dosing for this patient so will monitor closely as may need to back off once basal catches up. 08/28: * Mr. aCmacho received 10 units basal + 11 units bolus prior to bedtime last night. BSGs were: [phone] mg/dL. * Fasting BSG improved to 193 mg/dL this AM. Given patient's A1c, he will likely require basal insulin upon discharge. Will double basal dose this AM as suspect patient is significantly basal deficient. Outpatient fill records show no insurance claims for metformin or jardiance in over a year. * Continue Novolog based on weight/stress of 3 for now. 08/27: * 53 yo M admitted on 08/28/23 secondary to NSTEMI. Pharmacy has been consulted to assist with inpatient glycemic management. Patient is a Type 2 diabetic as an outpatient. Please refer to outpatient regimen and most recent HbA1c above. * BSGs have been [phone] mg/dL. Patient is NPO. On ceftriaxone for possible pneumonia. On heparin drip. * Received 6 units IV insulin bolus in ED. BSG improved as seen above. Will start Novolog now based on weight/stress of 2-3. Give Lantus 10 units this evening and reassess basal tomorrow. PLAN FOR INPATIENT GLYCEMIC CONTROL: * Hold outpatient oral diabetes medications * Basal insulin * Lantus 15 or 25 units based on scale (see MAR for details) SC HS * Bolus insulin * NovoLog per scale ACHS or Q6hrs while NPO * Goal Range: Low 110 mg/dL - High 140 mg/dL * Correction Factor: 20 mg/dL/unit * Nutritional / Prandial insulin per carb ratio of 1 unit per 7 grams CHO consumed
--- NOTE | 2023-08-31 14:32 | XRay Report ---
XR chest 1V portable HISTORY: Shortness of breath. COMPARISON: Chest 08/30/2023. FINDINGS: No pneumothorax. The heart remains enlarged. Small bilateral pleural effusions persist. Dif fuse interstitial/vascular thickening with patchy perihilar airspace opacities. This has progressed i n the interval and is consistent with worsening pulmonary edema. A superimposed pneumonia would be di fficult to exclude. IMPRESSION: Cardiomegaly with progression of the severe pulmonary edema. ACT 112: Negative or not required by law. Electronically signed by: Jameson Dahl M.D. 08/31/2023 2:31 PM
--- NOTE | 2023-08-31 15:08 | Hospitalist Progress Note ---
Date of Service August 31, 2023 Assessment & Plan (1) Acute on chronic heart failure with reduced ejection fraction and diastolic dysfunction: (2) Acute hypoxic respiratory failure: (3) NSTEMI (non-ST elevated myocardial infarction): (4) Pulmonary edema: (5) Bilateral pleural effusion: (6) Diabetes mellitus, type II: (7) Essential hypertension: (8) Generalized convulsive epilepsy: (9) Hyperlipidemia: (10) Tobacco abuse: (11) Hypomagnesemia: Plan 53 year old male with multiple medical conditions with HTN, DM, HLD, epilepsy, tobacco abuse etc who has been off of all medications for long time who presented to the ED from PCP office for CP. Ongoing N/V for about 6 days followed by chest pressure 3 days back [employer], which got worse on the day of arrival and went to the PCP and was subsequently referred to the ED. He is being managed for the following: Trop 400s. CXR- Cardiomegaly with interstitial and alveolar pulmonary edema with small bilateral pleural effusions. CTA chest 1. No pulmonary emboli identified. 2. Cardiomegaly and extensive coronary artery calcification. Interstitial and alveolar pulmonary edema with small to moderate bilateral pleural effusions. 3. Mildly enlarged mediastinal lymph nodes. These are nonspecific although likely related to pulmonary edema. CT A/P 1. No bowel obstruction or bowel wall thickening. 2. Nonobstructing bilateral nephrolithiasis. 3. Moderate pleural effusions with pulmonary edema and bibasilar consolidation. 4. Cardiomegaly with coronary arterial calcifications. Decreased enhancement of the left ventricular myocardium which involves the apex, lateral and septal walsh compatible with age-indeterminate myocardial infarct. Correlate with serum troponin's. Echo- severely reduced EF with severely dilated LV, anterior, anteroseptal and apical myocardium is thinned suggesting prior NM, severe wall motion abnormalities in multiple territories, severe hypokinesia to akinesia in LAD territory myocardium; additional severe hypokinesia in mid inferior, posterior and lateral segments which appear to spare the basal segments on contrast enhanced imaging; moderate eccentric MR Acute on chronic systolic and diastolic CHF with pulmonary edema, pleural effusions due to medication non compliance, Multivessel CAD, Cardiomyopathy with possible recent NM Hypomagnesemia and hypokalemia Echo noted as above-EF around 15%. BNP 1401. Repeat CXR today w/ worsening pul edema Cardio on board. being diuresed extensively, cardiac cath likely Mon. GDMT being optimized. daily weight, strict I and Os, daily labs. On ASA, statin, BB. Gradual initiation of GDMT. Monitor and replete electrolytes. Titrate O2 as tolerated. today w/ increasing O2 req/CXR w/ worsening pul edema, diuresis increased, maintain FR at 1500 ml. if worsening, likely will need BPAP and low threshold to transfer to ICU for close monitoring. Elevated troponin/likely Demand ischemia vs recent NM- Trop trend flat in 400s. Could be from above vs recent NM. Cardio on board. Ischemic eval per cardio. On heparin drip. Acute hypoxic respiratory failure- due to above. S/p BIPAP. Now on NC. Continue iv diuresis, Continue to wean down oxygen as tolerated DM-2- HA1c 12.9. 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 diabetic clinic on dc. will need PO med (likely jardiance 10 mg daily) and insulin on dc. HTN- Continue metoprolol HLD- continue statin. lipid panel WNL. Tobacco abuse- hasn't smoked in 2 weeks. Declined nicoderm patch H/o epilepsy- not on meds, reports last seizure 2011 and has been off of meds since about 2013. Medication non-compliance- Hasn't taken any of his medications for at least 6-12 months. States now he will take care of his meds and physician follow ups. DVT ppx- heparin drip. Disposition- Pending medical stablilty. On iv lasix. Cardiac cath once volume a nd respiratory status optimized. Time spent- approx 60 mins Admission and Anticipated Discharge Date Admission Date: August 28, 2023 Subjective Patient was seen and examined at bedside. Patient was lying in bed, reports sob today no chest pain, on 3 L oxygen via nasal cannula, NAD. Patient reports significant improvement in his LE swelling but has some sob today. Patient denies any fever or nausea or vomiting or chills or chest pain. Physical Exam Physical Exam: General: Sitting comfortably in bed, on 3L O2 via NC, not in acute distress HEENT: EOMI, PAULA Chest: Fair breath sounds bilaterally with rales and crackles. CVS: Tachycardic, normal heart sounds Abdomen: Soft, non tender, not distended, normal bowel sounds Neuro: Awake, alert, oriented, conversing well, non focal Extremities: No edema Results & Data Results & Data Vital Signs (Past 12 Hours) Vital Signs Temp Pulse Resp BP BP Pulse Ox O2 Del Method 08/31/23 11:43 36.9 C 116 H 30 H 118/76 93 Nasal Cannula 08/31/23 11:11 Nasal Cannula 08/31/23 07:20 36.4 C L 113 H 20 104/75 97 BiPAP O2 Flow Rate 08/31/23 11:43 2 08/31/23 11:11 2 08/31/23 07:20
[2023-08-31] MEDS: FUROSEMIDE 40 MG/4 ML VIAL IV STA (15:46)
[2023-08-31] MEDS: FUROSEMIDE 100 MG in 0.9 % SODIUM CHLORIDE 90 ML IV SCH (16:37)
[2023-08-31] MEDS ORDERED: FUROSEMIDE 40 MG/4 ML VIAL IV SCH (17:00)
[2023-08-31 19:56] LABS: A calco-baum cmplx NotReported Not Detected (NotDetected); Bact fragilis Not Reported Not Detected (NotDetected); Blood Culture Id Panel PCR Panel Negative (NotDetected); C auris Not Reported Not Detected (NotDetected); Calbicans Not Reported Not Detected (NotDetected); Candida glabrata Not Reported Not Detected (NotDetected); Candida krusei Not Reported Not Detected (NotDetected); Cneoformans/gatti Not Reported Not Detected (NotDetected); Cparapsilosis Not Reported Not Detected (NotDetected); E cloacae compx Not Reported Not Detected (NotDetected); Efaecalis Not Reported Not Detected (NotDetected); Efaecium Not Reported Not Detected (NotDetected); Enterobacterales Not Reported Not Detected (NotDetected); Escherichia coli Not Reported Not Detected (NotDetected); H influenzae Not Reported Not Detected (NotDetected); K aerogenes Not Reported Not Detected (NotDetected); Koxytoca Not Reported Not Detected (NotDetected); Kpneumoniae grp Not Reported Not Detected (NotDetected); Lmonocyt Not Reported Not Detected (NotDetected); N meningitidis Not Reported Not Detected (NotDetected); P aeruginosa Not Reported Not Detected (NotDetected); Proteus spp Not Reported Not Detected (NotDetected); Salmonella spp Not Reported Not Detected (NotDetected); Staph lugdunensis Not Reported Not Detected (NotDetected); Staph spp. Not Reported Not Detected (NotDetected); Staphaureus Not Reported Not Detected (NotDetected); Staphepi Not Reported Not Detected (NotDetected); Stenmaltophilia Not Reported Not Detected (NotDetected); Strep agal(GrpB) Not Reported Not Detected (NotDetected); Strep pneum Not Reported Not Detected (NotDetected); Strep pyog (GrpA) Not Reported Not Detected (NotDetected); Strep spp Not Reported Not Detected (NotDetected)
[2023-08-31 20:50] LABS: BUN Creatinine Ratio 18.6 (10-20); Calcium 8.8 mg/dl (8.6-10.3); Creatinine Clr Calc Pharmacy 94.9 ml/min; Est GFR (African American) 85.5 ml/min; Est GFR (Non-African American) 73.8 ml/min; Magnesium 1.7 mg/dl (1.7-2.4); Potassium 4.1 mmol/L (3.5-5.1)
[2023-08-31] MEDS: LANTUS PER UNIT CHARGE SQ SCH (21:07)
[2023-08-31] MEDS: LEVALBUTEROL 1.25 MG/3 ML NEB NEB STA (21:16)
[2023-08-31] MEDS: IPRATROPIUM BROMIDE NEB SOLN 0.02% 0.5MG/2.5ML VIAL NEB STA (21:16)
--- NOTE | 2023-08-31 21:24 | Electrocardiogram Report ---
Test Reason : Blood Pressure : / mmHG Vent. Rate : 115 BPM Atrial Rate : 115 BPM P-R Int : 136 ms QRS Dur : 136 ms QT Int : 366 ms P-R-T Axes : 050 -68 096 degrees QTc Int : 506 ms Sinus tachycardia Right bundle branch block Left anterior fascicular block Bifascicular block Septal infarct (cited on or before 28-AUG-2023) Abnormal ECG When compared with ECG of 29-AUG-2023 05:48, Serial changes of Septal infarct Present Confirmed by Ishan Stewart ([id number]) on 08/31/2023 9:24:15 PM Referred By: REFERRED SELF Confirmed By:Ishan Stewart
[2023-08-31] MEDS: MAGNESIUM SULFATE / D5W 1 GM/100 ML BAG IV SCH (22:19)
[2023-09-01 06:53] LABS: Hematocrit (blood only) 42.7 % (42.0-52.0); Hemoglobin 14.5 g/dl (14.0-18.0); Mean Corpuscular Hemoglobin 29.1 pg (25.0-34.0); Mean Corpuscular Volume 85.7 fL (80.0-100.0); Mean Platelet Volume 10.3 fL (9.4-12.4); Platelet Count 329 K/uL (130-400); RDW Coefficient of Variation 13.7 % (11.5-14.5); Red Blood Count 4.98 M/uL (4.70-6.10)
[2023-09-01 07:15] LABS: BUN Creatinine Ratio 24.1 (10-20); Calcium 8.5 mg/dl (8.6-10.3); Creatinine Clr Calc Pharmacy 127.1 ml/min; Est GFR (African American) 116.4 ml/min; Est GFR (Non-African American) 100.5 ml/min; Magnesium 1.9 mg/dl (1.7-2.4); Phosphorus 3.8 mg/dl (2.5-4.9); Potassium 3.5 mmol/L (3.5-5.1)
[2023-09-01 07:26] LABS: ANTI-Xa, UFH(UnfractionatedHep 0.31 IU/ml (0.3-0.7)
--- NOTE | 2023-09-01 12:35 | Cardiology Progress Note ---
Date of Service September 01, 2023 Assessment & Plan (1) Acute on chronic heart failure with reduced ejection fraction and diastolic dysfunction: (2) Acute hypoxic respiratory failure: (3) Non-ST elevation MN (NSTEMI): (4) Pulmonary edema: (5) Hypokalemia: (6) Hypomagnesemia: Plan 08/29/23: Patient admitted for worsening SOB/chest tightness/hypoxia, consistent with acute HFrEF after being non compliant with all medications for at least 6-12 months. Severely dilated and severely reduced LV function on echo at about 15%. Continue IV diuretics - furosemide 40 mg IV BID today to improve volume status. Continue supplemental O2 and BIPAP as needed. Supplement potassium to maintain K 4-5 Monitor I+O's. Maintain negative balance. Weight trending down. Monitor renal function/electrolytes Echo with wall motion abnormalities consistent with probable multivessel coronary disease. start ASA 81 mg daily. Continue IV heparin for now. Resume statin- atorvastatin 40 mg daily Metoprolol succinate initiated. Need to consider future cardiac cath, however, patient's respiratory status needs to improve before we proceed with invasive procedure. Need to also consider viability study. Persistent sinus tachycardia is compensatory to maintain cardiac output noted given low EF. Transition metoprolol tartrate to metoprolol succinate 25 mg BID. Titrate as needed/allowed. DM management per hospitalist. A1C is 13 08/30/23: Patient with 2.5 L output yesterday and thus far today. Weight trending downward. Continue to monitor with daily standing scale. BP improved. Continue IV diuretics- Furosemide 40 mg BID stable renal function and potassium. Magnesium level is low - will supplement with oral to limit IV fluids. recheck in AM Remains tachycardic, compensatory given low EF. Tolerating metoprolol succinate 25 mg BID. BP trending lower with IV diuresis and med adjustments. If allows, consider adding Entresto in the next 1-2 days. Chronicity of cardiomyopathy is unknown however, recent MN cannot be excluded. Elevated troponin on admission, but fairly flat and not indicative of acute ACS. Currently chest pain free. Will need ischemic work up given severe LV dysfunction and wall motion abnormalities. will plan for diagnostic cardiac cath during hospitalization after respiratory and volume status improves. 08/31/23: Per Dr. Corrales's notes - Weight trending downward although recorded fluid balance -1.2 L since admission. Titrate Lasix to 80 mg twice daily. Monitor fluid balance, daily weight, GFR, and electrolytes. Add magnesium hydroxide 400 mg daily. Continue oral potassium supplementation 40 mEq twice daily. Heart rate improved overnight, however, elevated this a.m. With ongoing orthopnea, I do not believe he could tolerate a cardiac catheterization today. Continue BiPAP nightly and with napping. Continue current dose of beta-armando therapy. Unable to add Entresto at this time due to borderline hypotension. Addendum: Contacted by hospitalist due to x-ray evidence of worsening pulmonary edema. 1.3 L negative fluid balance since additional 40 mg of Lasix this a.m. Recommend additional 80 mg of IV furosemide now, BiPAP support, and initiation of IV Lasix infusion, 10 mg/h. Consider transfer to intensive care unit pending clinical response. 09/01/23: Improving symptoms since yesterday. Significant urine output since last evening when lasix gtt started at 10 mg/hour. 6.7 L output last night 1.2 L output thus far today. Weight down about 3.5 Kg since yesterday stable renal function and potassium. Continue potassium and magnesium supplement. Sodium remains low but stable at 132. Continue current dose of metoprolol succinate 25 mg BID. Allow for mild sinus tachycardia, given reduced EF. Compensatory to maintain cardiac outputs. BP remains acceptable. Unable to add additional GDMT including Entresto/spironolactone given risk of developing hypotension. Continue O2 and BIPAP support as needed. Will eventually need cardiac catheterization, but fluid and respiratory status needs optimized prior to invasive procedures. Case discussed with Dr. Candelaria I spent a total of 30 minutes on the date of service in preparation, delivery, and documentation of the care provided to this patient, excluding any time spent in the performance of separately billed services. Marisela Dominguez PA-C Department of Cardiology, [facility] This chart was completed in part utilizing Speech Voice Recognition Software. Grammatical errors, random word insertions, pronoun errors, and incomplete sentences are an occasional consequence of this system due to software limitations, ambient noise, and hardware issues. Any formal questions or concerns about the content, text, or information contained within the body of this dictation should be directly addressed to the provider for clarification. Admission and Anticipated Discharge Date Admission Date: August 28, 2023 Supervising Physician Co-Signing Physician Notes Attending attestation. I have personally performed a history and physical examination on the patient. I have reviewed the advance practitioner's documentation, and I agree with, and take responsibility for the plan of care. Significantly improved shortness of breath and lower extremity swelling has responded well to IV Lasix drip Plan cardiac catheterization during hospitalization after volume status is improved Continue with IV Lasix and will uptitrate beta-armando I spent a total of 20 minutes on the date of service in preparation, delivery, and documentation of the care provided to this patient, excluding any time spent in the performance of separately billed services. Subjective Patient resting in bed. Reports mild improvement in his SOB since yesterday but still dyspneic with minimal activity. Ongoing orthopnea reported. Did not sleep well with BIPAP. Good diuresis overnight with lasix gtt. Tolerating medication. No chest pain. Review of Systems Review of Systems: All systems reviewed & are unremarkable except as noted in HPI & below Physical Exam Constitutional: + ill appearing; no acute distress Neck: normal visual inspection Respiratory: no labored breathing Auscultation: + diminished lung sounds (Bases bilateral) and + rales (Bilateral) Cardiovascular: Rate/Rhythm: regular rate and + tachycardic Vessels: + JVD Extremities: + edema (Trace bilateral ankle edema.) Gastrointestinal (Abdomen): normal bowel sounds, soft, nontender, no hepatosplenomegaly Neurologic: CN's II-XI intact bilaterally and moves all extremities Psychiatric: A+Ox3, euthymic affect Results & Data Vital Signs (Past 12 Hours) Vital Signs Temp Pulse Pulse Resp BP BP Pulse Ox 09/01/23 11:25 36.5 C 105 H 28 H 109/85 98 09/01/23 08:00 09/01/23 07:22 36.5 C 105 H 24 110/76 96 09/01/23 03:26 104 H 22 95 09/01/23 02:48 36.4 C L 107 H 20 108/89 96 O2 Del Method O2 Flow Rate FiO2 09/01/23 11:25 Nasal Cannula 6.0 09/01/23 08:00 High Flow Nasal Cannula 6 09/01/23 07:22 BiPAP 09/01/23 03:26 35 09/01/23 02:48 BiPAP Laboratory Results Cardiac Enzymes 08/31/23 Range/Units 14:06 Troponin I High Sens 219.0 H* (0-20) pg/ml CBC 09/01/23 Range/Units 06:24 WBC 10.60 (4.8-10.8) K/ul RBC 4.98 (4.70-6.10) M/uL Hgb 14.5 (14.0-18.0) g/dl Hct 42.7 (42.0-52.0) % Plt Count 329 (130-400) K/uL Comprehensive Metabolic Panel 08/31/23 09/01/23 Range/Units 20:04 06:24 Sodium 131 L 132 L (136-145) mmol/L Potassium 4.1 3.5 (3.5-5.1) mmol/L Chloride 95 L 94 L (98-107) mmol/L Carbon Dioxide 25 27 (21-32) mmol/L BUN 21 20 (6-23) mg/dl Creatinine 1.13 D 0.83 D (0.6-1.4) mg/dl Glucose 205 H 148 H (70-99(Fasting)) mg/dl Calcium 8.8 8.5 L (8.6-10.3) mg/dl Intake and Output 08/31/23 09/01/23 09/01/23 22:59 06:59 14:59 Intake Total 670.933 / 3097.800 943.667 / 3097.800 121.800 / 121.800 Output Total 2056 / 6706 2300 / 6706 1225 / 1225 Balance -1385.067 / -3608.200 -1356.333 / -3608.200 -1103.200 / -1103.200 Intake: IV 420.933 / 1307.800 643.667 / 1307.800 121.800 / 121.800 Furosemide 100 mg In 0.9 % 91.667 / 91.667 95.667 / 95.667 Sodium Chloride 90 ml @ 10 MG/ HR 10 mls/hr IV .Q10H [facility] Rx#: [id number] Heparin Sodium/Dextrose 25,000 370.933 / 966.133 352 / 966.133 26.133 / 26.133 units In 500 ml @ 1,600 UNITS/ HR 32 mls/hr IV .[id number] [facility] Rx #:[id number] Magnesium Sulfate / D5w 1 gm In 200 / 200 100 ml @ 50 mls/hr IV Q2H [facility] Rx#:[id number] cefTRIAXone SODIUM 2,000 mg In 50 / 50 50 ml @ 100 mls/hr IV Q24H [facility] Rx#:[id number] Oral 250 / 1790 300 / 1790 Output: Urine Amount (Catheter) 2049 2300 / 6700 1225 / 1225 Thurman/Indwelling 2049 230 / 0 1225 / 1225 # Bowel Movements Other: Weight 98.4 kg Weight Measurement Method Built in [facility] Diagnostic Findings Telemetry reviewed: sinus tach ranging 100-110 bmp Chest xray yesterday reviewed: IMPRESSION: Cardiomegaly with progression of the severe pulmonary edema. Medications Administered Current Inpatient Medications Aspirin (Aspirin 81 Mg Ectab) 81 mg PO DAILY [facility] Stop: 09/28/23 08:59 Last Admin: 09/01/23 08:52 Dose: 81 mg Atorvastatin Calcium (Atorvastatin 40 Mg Tab) 40 mg PO HS [facility] Stop: 09/27/23 20:59 Last Admin: 08/31/23 21:08 Dose: 40 mg Dextrose (Dextrose 50% 50 Ml Syringe) 25 - 50 ml IV UD PRN; Protocol PRN Reason: Hypoglycemia Protocol Stop: 09/27/23 20:12 Glucagon (Glucagon For Inj 1 Mg Vial) 1 mg SQ UD PRN; Protocol PRN Reason: Hypoglycemia Protocol Stop: 09/27/23 20:12 Glucose (Glucose 40% Gel 15 Gm Tube) 15 - 30 gm PO UD PRN; Protocol PRN Reason: Hypoglycemia Protocol Stop: 09/27/23 20:12 Glucose (Glucose 10 Tab/Tube) 4 - 8 tab PO UD PRN; Protocol PRN Reason: Hypoglycemia Treatment Stop: 09/27/23 20:12 Heparin Sodium/Dextrose (Heparin Sodium/Dextrose) 25,000 units in 500 mls @ 32 mls/hr IV .[id number] [facility]; Protocol Stop: 09/27/23 17:44 Last Titration: 09/01/23 07:09 Dose: 1,600 units/hr, 32 mls/hr Ceftriaxone Sodium (Rocephin) 2,000 mg in 50 mls @ 100 mls/hr IV Q24H [facility]; Pro tocol Stop: 09/04/23 20:59 Last Infusion: 08/31/23 21:44 Dose: Infused Furosemide 100 mg/ Sodium (Chloride) 100 mls @ 10 mls/hr IV .Q10H [facility] Stop: 09/30/23 15:44 Last Admin: 09/01/23 11:21 Dose: 10 mg/hr, 10 mls/hr Insulin Aspart (Insulin Aspart Per Unit Charge) 0 units SC ACHS [facility]; Protocol Stop: 09/28/23 11:29 Last Admin: 09/01/23 12:15 Dose: 7 units Insulin Glargine (Lantus Per Unit Charge) 0 units SQ HS [facility]; Protocol Stop: 09/30/23 20:59 Last Admin: 08/31/23 21:07 Dose: 25 units Magnesium Oxide (Magnesium Oxide 400 Mg Tab) 400 mg PO QAM [facility] Stop: 09/30/23 09:59 Last Admin: 09/01/23 09:02 Dose: 400 mg Metoprolol Succinate (Metoprolol Succ 25mg Ext Rel Tab) 25 mg PO BID [facility] Stop: 09/28/23 10:59 Last Admin: 09/01/23 08:58 Dose: 25 mg Miscellaneous (Carbohydrates For Hypoglycemia ) 15 - 30 gm PO UD PRN PRN Reason: Hypoglycemia Protocol Stop: 09/27/23 20:12 Miscellaneous Information (Pharmacy Glycemic Mgmt Consult) 1 each N/A UD PRN PRN Reason: Consult Stop: 09/27/23 20:12 Morphine Sulfate (Morphine Sulfate 2 Mg/Ml Carp) 2 mg IV Q4H PRN PRN Reason: Pain Stop: 09/11/23 20:12 Nitroglycerin (Nitroglycerin Sl 0.4 Mg/Tab Tab) 0.4 mg SL Q5M PRN PRN Reason: Chest Pain Stop: 09/27/23 20:12 Potassium Chloride (Potassium Chloride Crtab 20 Meq Tabcr) 40 meq PO BID [facility] Stop: 09/28/23 20:59 Last Admin: 09/01/23 08:58 Dose: 40 meq
--- NOTE | 2023-09-01 15:31 | Hospitalist Progress Note ---
Date of Service September 01, 2023 Assessment & Plan (1) Acute on chronic heart failure with reduced ejection fraction and diastolic dysfunction: (2) Acute hypoxic respiratory failure: (3) NSTEMI (non-ST elevated myocardial infarction): (4) Pulmonary edema: (5) Bilateral pleural effusion: (6) Diabetes mellitus, type II: (7) Essential hypertension: (8) Generalized convulsive epilepsy: (9) Hyperlipidemia: (10) Tobacco abuse: (11) Hypomagnesemia: Plan 53 year old male with multiple medical conditions with HTN, DM, HLD, epilepsy, tobacco abuse etc who has been off of all medications for long time who presented to the ED from PCP office for CP. Ongoing N/V for about 6 days followed by chest pressure 3 days back [employer], which got worse on the day of arrival and went to the PCP and was subsequently referred to the ED. He is being managed for the following: Trop 400s. CXR- Cardiomegaly with interstitial and alveolar pulmonary edema with small bilateral pleural effusions. CTA chest 1. No pulmonary emboli identified. 2. Cardiomegaly and extensive coronary artery calcification. Interstitial and alveolar pulmonary edema with small to moderate bilateral pleural effusions. 3. Mildly enlarged mediastinal lymph nodes. These are nonspecific although likely related to pulmonary edema. CT A/P 1. No bowel obstruction or bowel wall thickening. 2. Nonobstructing bilateral nephrolithiasis. 3. Moderate pleural effusions with pulmonary edema and bibasilar consolidation. 4. Cardiomegaly with coronary arterial calcifications. Decreased enhancement of the left ventricular myocardium which involves the apex, lateral and septal walsh compatible with age-indeterminate myocardial infarct. Correlate with serum troponin's. Echo- severely reduced EF with severely dilated LV, anterior, anteroseptal and apical myocardium is thinned suggesting prior LA, severe wall motion abnormalities in multiple territories, severe hypokinesia to akinesia in LAD territory myocardium; additional severe hypokinesia in mid inferior, posterior and lateral segments which appear to spare the basal segments on contrast enhanced imaging; moderate eccentric MR Acute on chronic systolic and diastolic CHF with pulmonary edema, pleural effusions due to medication non compliance, Multivessel CAD, Cardiomyopathy with possible recent LA Hypomagnesemia and hypokalemia Echo noted as above-EF around 15%. BNP 1401. Repeat CXR today w/ worsening pul edema Cardio on board. being diuresed extensively, cardiac cath likely Mon. GDMT being optimized as able. daily weight, strict I and Os, daily labs. On ASA, statin, BB. Gradual initiation of GDMT. Monitor and replete electrolytes. Titrate O2 as tolerated. Improved O2 needs today, some improvment in sob today per pt. Elevated troponin/likely Demand ischemia vs recent LA- Trop trend flat in 400s. Could be from above vs recent LA. Cardio on board. Ischemic eval per cardio. On heparin drip. Acute hypoxic respiratory failure- due to above. S/p BIPAP. Now on NC. Continue iv diuresis, Continue to wean down oxygen as tolerated Bl Cx +ve: GPB noted 08/31 on 08/27 Cx. Sent repeat Cx 08/31. pt on antibiotic ceftriaxone since 08/27. continue for now. follow final c/s. DM-2- HA1c 12.9. Glycemic pharmacist managing insulin. [employer]. diabetic clinic on dc. will need PO med (likely jardiance 10 mg daily) and insul in on dc. HTN- Continue metoprolol HLD- continue statin. lipid panel WNL. Tobacco abuse- hasn't smoked in 2 weeks. Declined nicoderm patch H/o epilepsy- not on meds, reports last seizure 2011 and has been off of meds since about 2013. Medication non-compliance- Hasn't taken any of his medications for at least 6-12 months. States now he will take care of his meds and physician follow ups. DVT ppx- heparin drip. Disposition- Pending medical stablilty. On iv lasix. Cardiac cath once volume and respiratory status optimized. Time spent- approx 60 mins Admission and Anticipated Discharge Date Admission Date: August 28, 2023 Subjective Patient was seen and examined at bedside. Patient was lying in bed, reports improvement in sob today no chest pain, on 6 L oxygen via nasal cannula, NAD. Did use BPAP overnight. Reports some sob w/ activity. Patient reports significant improvement in his LE swelling and some improvement in sob. Patient denies any fever or nausea or vomiting or chills or chest pain. Physical Exam Physical Exam: General: Sitting comfortably in bed, on 6L O2 via NC, not in acute distress HEENT: EOMI, PAULA Chest: Fair breath sounds bilaterally with rales and crackles. CVS: Tachycardic, normal heart sounds Abdomen: Soft, non tender, not distended, normal bowel sounds Neuro: Awake, alert, oriented, conversing well, non focal Extremities: No edema Results & Data Results & Data Vital Signs (Past 12 Hours) Vital Signs Temp Pulse Resp BP Pulse Ox O2 Del Method O2 Flow Rate 09/01/23 14:57 36.5 C 105 H 28 H 109/80 97 High Flow Nasal Cannula 6.0 09/01/23 11:25 36.5 C 105 H 28 H 109/85 98 Nasal Cannula 6.0 09/01/23 08:00 High Flow Nasal Cannula 6 09/01/23 07:22 36.5 C 105 H 24 110/76 96 BiPAP
--- NOTE | 2023-09-01 20:10 | Communication Note ---
Date of Service: September 01, 2023 CODE BLUE called at 2007. panel monitor started alarming VF. Patient noted to be unresponsive as per RN. CPR and ACLS protocol initiated. Multiple medications (epinephrine, amiodarone, bicarb, etc.) and defibrillation shocks administered throughout code with ICU provider present. ED provider inserted endotracheal tube via Glidescope. No ROSC despite resuscitation efforts. Patient sister (Ms. Zuleyka Camacho) called on the phone to be given update of situation and concurrent futile efforts in light of patient's cardiomyopathy. Patient sister requested for resuscitation efforts to be terminated. Patient pronounced at 2029.
[2023-09-01] MEDS ORDERED: AMIODARONE 360MG / 200ML D5W IV ONE (20:19)
[2023-09-01] MEDS ORDERED: AMIODARONE 150MG / 100ML D5W IV ONE (20:24)
--- NOTE | 2023-09-01 20:39 | Death Pronouncement Note ---
Date of Service September 01, 2023 Pronouncement Note Admission Date August 28, 2023 Date and Time of Date of : 09/01/23 Time of : 20:30 Summary Discharge summary and certificate to be completed by Dr. Curtis. Additional Data Confirmation of : no pulse, no respirations, no heart sounds and pupils fixed and dilated Attending physician: Josh Curtis MD Was code activated?: Yes
--- NOTE | 2023-09-01 21:21 | Emergency Department Note ---
ED Visit Note Endotracheal Intubation Indication: code blue. A was placed atraumatically to using glidescope. The cuff inflated without signs of malfunction. There were bilateral breath sounds, positive colormetric change, no gastric sounds, a good capnography waveform. There were no complications. .
[2023-09-01] MEDS ORDERED: AMIODARONE HCL INJ 50 MG/ML 3 ML VIAL IV ONE (23:11)
[2023-09-01] MEDS ORDERED: SODIUM CHLORIDE 0.9% 10ML FLUSH IV ONE (23:11)
--- NOTE | 2023-09-02 17:08 | Discharge Summary ---
Date of Service September 02, 2023 Admission HPI Per Admitting Provider 53-year-old male with history of uncontrolled diabetes mellitus type 2, hypertension, epilepsy, hyperlipidemia, polyneuropathy, tobacco abuse who was sent from the PCP office for chest pain evaluation. History obtained from patient and chart review but he is not a good historian. States he started feeling sick about 2 weeks ago with nausea/vomiting which improved but started having chest pressure and dyspnea on exertion for about 4 days. It got worse today for which he went to see his PCP today and was referred to the ED. Also had some orthopnea and ankle swelling. states he has been off all his medications for about 6+ months now as he ran out and did not get them refilled. In the PCP office, EKG was done, he was given 4 baby aspirin, 1 SL nitro and sent to the ED. In the ED, patient was found to have sinus tachycardia with EKG changes, trop was elevated, CT chest showed no PE but moderate pleural effusion with pulm edema and bibasilar consolidation along with cardiomegaly with coronary artery calcification, decreased enhancement of left ventricular myocardium which involves apex, lateral and septal walsh compatible with age- indeterminate myocardial infarct. Case was discussed by ED physician with cardiology and interventional cardiology and heparin drip was started and echo was ordered. He was started on BIPAP and given IV Lasix. Hospitalist service was consulted for admission. Per my discussion with ED physician, cardiology and interventional cardiology are aware and awaiting echocardiogram results prior to determining next steps. He denies any fever, chills, cough, URI symptoms or sick contacts. Admission Exam Per Admitting Provider General:Sitting comfortably in bed, on BIPAP, not in acute distress HEENT: EOMI, PAULA Chest: Fair breath sounds bilaterally with rales CVS: Tachycardic, normal heart sounds Abdomen: Soft, non tender, not distended, normal bowel sounds Neuro: Awake, alert, oriented, conversing well, non focal Extremities: No edema Principal Diagnosis Acute on chronic systolic and diastolic CHF with pulmonary edema, pleural effusions due to medication non compliance, Multivessel CAD, Cardiomyopathy with possible recent VT Discharge Exam Pt was not seen by undersigned. Discharge Data Allergies Allergy/AdvReac Type Severity Reaction Status Date / Time levetiracetam [From [facility]] Allergy Unknown Verified 08/28/23 19:52 Consultations 08/28/23 17:17 ED Decision to Admit Stat 08/29/23 08:16 Consult Cardiology Routine Ordered Studies 08/28/23 16:15 CT angio chest PE protocol Stat 08/28/23 16:17 CT abd pelvis IV con only Stat Hospital Course (1) Acute on chronic heart failure with reduced ejection fraction and diastolic dysfunction: (2) Acute hypoxic respiratory failure: (3) NSTEMI (non-ST elevated myocardial infarction): (4) Pulmonary edema: (5) Bilateral pleural effusion: (6) Diabetes mellitus, type II: (7) Essential hypertension: (8) Generalized convulsive epilepsy: (9) Hyperlipidemia: (10) Tobacco abuse: (11) Hypomagnesemia: Plan 53 year old male with multiple medical conditions with HTN, DM, HLD, epilepsy, tobacco abuse etc who has been off of all medications for long time who presented to the ED from PCP office for CP. Ongoing N/V for about 6 days followed by chest pressure 3 days back [employer], which got worse on the day of arrival and went to the PCP and was subsequently referred to the ED. He was being managed for the following: Trop 400s. CXR- Cardiomegaly with interstitial and alveolar pulmonary edema with small bilateral pleural effusions. CTA chest 1. No pulmonary emboli identified. 2. Cardiomegaly and extensive coronary artery calcification. Interstitial and alveolar pulmonary edema with small to moderate bilateral pleural effusions. 3. Mildly enlarged mediastinal lymph nodes. These are nonspecific although likely related to pulmonary edema. CT A/P 1. No bowel obstruction or bowel wall thickening. 2. Nonobstructing bilateral nephrolithiasis. 3. Moderate pleural effusions with pulmonary edema and bibasilar consolidation. 4. Cardiomegaly with coronary arterial calcifications. Decreased enhancement of the left ventricular myocardium which involves the apex, lateral and septal walsh compatible with age-indeterminate myocardial infarct. Correlate with serum troponin's. Echo- severely reduced EF with severely dilated LV, anterior, anteroseptal and apical myocardium is thinned suggesting prior VT, severe wall motion abnormalities in multiple territories, severe hypokinesia to akinesia in LAD territory myocardium; additional severe hypokinesia in mid inferior, posterior and lateral segments which appear to spare the basal segments on contrast enhanced imaging; moderate eccentric MR Acute on chronic systolic and diastolic CHF with pulmonary edema, pleural ef fusions due to medication non compliance, Multivessel CAD, Cardiomyopathy with possible recent VT Hypomagnesemia and hypokalemia Elevated troponin/likely Demand ischemia vs recent VT Acute hypoxic respiratory failure Bl Cx +ve: DM-2- uncontrolled HTN HLD- Tobacco abuse- H/o epilepsy- Medication non-compliance DVT ppx- heparin drip. Addendum 09/02/23: I was informed patient 09/01/23 at 2030 hours. Code was activated and likely cause of is Cardiac arrest (VF) likely 2/2 c ardiomyopathy iso advanced heart failure w/ reduced ejection fraction. Will ask HIM to initiate electronic record be initiated to sign the certificate. Called today, couldn't connect d/t being weekend. Home Health Attestation I certify that this patient is under my care and that I, or a physicians clinic assistant working with me, had a face to-face encounter that meets the home health [id number] encounter requirements with this patient. The encounter with the patient was in whole, or in part, for the following medical condition, which is the primary reason for home health care (list medical condition): I certify that, based on my findings, the following services are medically necessary home health services: My clinical findings support the need for the above services because: Further, I certify that my clinical findings support that this patient is homebound (i.e. absences from home require considerable and taxing effort and are for medical reasons or evangelical services or infrequently or of short duration when for other reasons) because: Certification for Home Health Services: Based on the above findings, I certify that this patient is confined to the home and needs intermittent senior living care, physical therapy and/or speech therapy or continues to need occupational therapy. The patient is under my care, and I have initiated the establishment of the plan of care. This patient will be followed by a physician who will periodically review the plan of care. Total Time Total Time Spent Total Time Spent (In Minutes): 25 Discharge Plan Discharge Items Patient Disposition: Other Date/Time: 09/01/23 20:30
--- NOTE | 2023-09-04 05:33 | Electrocardiogram Report ---
Test Reason : Blood Pressure : / mmHG Vent. Rate : 115 BPM Atrial Rate : 083 BPM P-R Int : 000 ms QRS Dur : 190 ms QT Int : 510 ms P-R-T Axes : 000 138 -43 degrees QTc Int : 705 ms Poor data quality, interpretation may be adversely affected Wide QRS tachycardia with Premature ventricular complexes Right bundle branch block , plus right ventricular hypertrophy Anteroseptal infarct , age undetermined T wave abnormality, consider inferior ischemia Abnormal ECG When compared with ECG of 29-AUG-2023 05:48, Wide QRS tachycardia has replaced Sinus rhythm Confirmed by Aric Loving ([id number]) on 09/04/2023 5:33:15 AM Referred By: REFERRED SELF Confirmed By:Aric Loving
== END 2023-09-01 23:12 | disposition expired ==
LOC: ED 15:25 → SUATTDRO 17:49 → 2E 17:49